=== PATIENT | female | born 1950 | race Caucasian/White ===

== ENCOUNTER 2022-02-19 14:01 | Outpatient (CLI) | payer MEDICARE, SELFPAY ==
--- NOTE | 2022-02-19 14:13 | MM_ITS ---
WS: [id number] BILATERAL 3D TOMOSYNTHESIS DIGITAL SCREENING MAMMOGRAPHY WITH CAD CLINICAL INFORMATION: SCREENING HISTORY: Screening mammogram. LEFT lump near axilla. RIGHT breast discharge. COMPARISON: August 02, 2020 TECHNIQUE: Bilateral CC and MLO views. FINDINGS: History of bilateral breast reduction. Scattered fibroglandular densities bilaterally. Punctate and vascular calcifications. Architectural d istortion upper outer LEFT breast unchanged since 2019. No suspicious focal mass, asymmetry, calcific ations, or architectural distortion. No evidence of malignancy. MM/[place] [id number] IMPRESSION: BI-RADS: 2-Benign FOLLOW UP: 1 Year Follow-up Recommend return to annual screening mammography.
== END 2022-02-19 14:02 | disposition home or self-care (01) ==
LOC: RAD 14:04
PROVIDERS: Visit Provider Physician Assistant
DX: Z12.31 Encounter for screening mammogram for malignant neoplasm of breast (principal)
CPT/HCPCS: 77063; 77067

== ENCOUNTER 2022-03-10 11:46 | Inpatient (IN) | payer MEDICARE, SELFPAY ==
[2022-03-10] VITALS (7 sets, daily range): BP systolic 100–155; BP diastolic 67–71; PULSE 56–79; RESP 16–18; TEMP 36.8–38.4; O2SAT 88–98; BMI 25.3
--- NOTE | 2022-03-10 14:22 | ED_ITS ---
HPI - General Adult General: Chief complaint: COVID symptoms Stated complaint: abd pain, covid + Time Seen by Provider: 03/10/22 14:14 History of Present Illness: Patient is a 71-year-old female with history hypothyroidism presenting to the emergency room with complaints of acute cough, runny nose, sore throat, loss of taste, vomiting, decreased p.o. intake, and diarrhea for the last 4 days. Per patient, for the last 30 days, she has had right lower quadrant abdominal pain that is intermittent cramping. Says it, patient has been doing well up until 4 days ago when she suddenly began having URI-like symptoms. Patient had underwent testing at urgent care today was found to have COVID. Patient tells me that she has not been able to hold anything down for the last 4 days. Patient tells me that earlier today, she has had multiple episodes of emesis with the last episode looking kind of brownish and coffee colored. Patient noted mild streaks of blood in her vomit. Patient denies any abdominal pain, excessive use of NSAIDs, anticoagulation use, melena hematochezia. Patient has no prior history of varices or prior status of peptic ulcer. Patient denies any excessive alcohol use. Onset: 4 days of cough, runny nose, sore throat, loss of taste, dehydration, and vomiting in the setting of 30 days of RLQ abd pain Duration:ongoing Location:home Severity:moderate Associated symptoms: Reports malaise, nausea and vomiting; Deny chest pain, dyspnea, rash or palpitations Review of Systems Const: Reports: fever(s), chills, body aches, change in appetite, fatigue, malaise and other (+generalized weakness) Eyes: Denies: change in vision ENMT: Denies: mouth pain Card: Denies: chest pain or palpitations Resp: Denies: dyspnea or non-productive cough GI: Reports: nausea, vomiting, diarrhea and other (+coffee ground emesis after multiple clear emesis, +decreased po intake); Denies: abdominal pain : Denies: dysuria Musc: Denies: extremity pain Skin/Breast: Denies: rash or new lesions Neuro: Denies: weakness in extremities Psych: Reports: other (Normal mood) Zeeshan/Lymph: Denies: easy bruising PFS ED PFSH: Medical History (Updated 03/11/22 @ 16:23 by Gumaro Hinojosa MD) Hypothyroidism Surgical History (Updated 03/10/22 @ 17:54 by Gumaro Hinojosa MD) H/O: hysterectomy Hx of appendectomy Hx of cholecystectomy Family History (Updated 03/10/22 @ 17:55 by Gumaro Hinojosa MD) Mother Lung cancer Social History Smoking and tobacco status: never smoked Alcohol intake: never Substance/Drug Use: never Physical Exam Const: COMMON NORMALS: alert HENMT: COMMON NORMALS: atraumatic HEAD & SCALP: atraumatic MOUTH: moist mucous membranes abnormal Eye: COMMON NORMALS: EOMs intact bilaterally and conjunctivae normal CONJUNCTIVA: Yes conjunctivae normal Neck/C-Spine: COMMON NORMALS: full ROM and supple Resp: COMMON NORMALS: normal respiratory effort and clear to auscultation bilaterally AUSCULTATION: clear to auscultation bilaterally Cardio: COMMON NORMALS: regular rate RATE: regular rate GI: COMMON NORMALS: Soft to palpation PALPATION: Yes Soft to palpation OTHER: +mild RLQ focal TTP. NO guarding rebound, guarding, rigidity. No CVA tenderness to percussion. Neg Fournier/Neg McBurney's point tenderness, no suprabupic tenderness to palpation. Extremity: COMMON NORMALS: full ROM Neuro: SENSORIUM/ORIENTATION: Yes alert MOTOR EXAM: No Abnormal motor strength present and Other motor observations present (no focal motor deficits) Psych: COMMON NORMALS: speech normal SPEECH: Yes normal speech MOOD & AFFECT: Yes euthymic mood Course Vital Signs: Vital signs: Vital Signs Temperature 98.3 F 03/13/22 20:00 Pulse Rate 60 03/13/22 20:00 Respiratory Rate 14 03/13/22 20:00 Blood Pressure 143/77 03/13/22 20:00 Pulse Oximetry 98 03/13/22 20:00 Oxygen Delivery Me thod 03/13/22 20:00 Oxygen Flow Rate 1 03/13/22 20:00 MDM - General Adult Medical Decision Making 71-year-old female with history of hypothyroidism presenting to the emergency room with generalized weakness, body ache, fever/chills, decreased p.o. intake, nausea vomiting diarrhea for the last 4 days in the setting of right lower quadrant abd pain x30 days. On physical exam, patient has mild tenderness of his right lower quadrant. Patient is febrile to 101.4 degrees. Patient appears to be dry with no guarding or rebound tenderness. COVID antigen is positive. X-ray chest is consistent with mild COVID. Patient has increased oxygen requirement satting 85 to 90% on room air. Dimer pending. Patient received Decadron 6mg and remdesivir. Patient will with oxygen for COVID pneumonia. CT showed superimposed atypical bacterial pneumonia. CT showed enteritis mild in the abdomen. Patient received ceftriaxone and azithromycin. Disposition: admission Lab Data : 03/13/22 06:58 03/13/22 06:58 Radiology Impressions Abdomen/Pelvis CT 03/10/22 14:33 IMPRESSION: 1. Reticulonodular interstitial thickening in the right middle lobe and right lower lobe. The patient is reportedly COVID-19 positive, these findings are not commonly seen in COVID-19 pneumonia however. Recommend clinical correlation for possible superimposed atypical bacterial pneumonia. Recommend followup chest imaging to insure resolution of these findings. 2. Fluid within the small bowel and colon without evidence of bowel wall thickening. This may reflect viral gastroenteritis in the appropriate clinical situation. 3. Scattered diverticula in the sigmoid colon. No evidence for diverticulitis. 4. Moderate hiatal hernia. 5. Small fat-containing umbilical hernia. No evidence for strangulation. 6. Incidental/nonacute findings are listed in the report. COMMENTS: Consistent with the [employer]'s Incidental Findings Committee white paper (J Am Renee Radiol 2018): Any incidental renal lesion less than 1 cm or classified as too small to characterize, or any incidental cystic renal lesion characterized as simple-appearing, is likely benign. No follow-up imaging is recommended for these lesions per consensus recommendations based on imaging criteria. ADDENDUM: 03/10/221822 Urgent results were discussed with PORSHA Alberto on 03/10/2022 at 6:21 PM CDT. Chest X-Ray 03/10/22 16:39 IMPRESSION: 1. Reticulonodular interstitial thickening in the right lung, suspicious for atypical bacterial pneumonia (patient is reportedly COVID-19 positive, these findings are atypical for COVID-19 pneumonia). Recommend followup chest imaging to insure resolution of these findings. 2. Incidental/nonacute findings are listed in the report. ADDENDUM: 07/25/22 1823 Urgent results were discussed with PORSHA Alberto on 03/10/2022 at 6:22 PM CDT. Chest CTA 03/11/22 12:04 IMPRESSION: 1. Reticulonodular interstitial thickening in both lungs, worse on the right. These findings are not commonly seen in COVID-19 pneumonia. Findings are suspicious for a superimposed atypical bacterial pneumonia. Recommend followup chest imaging to insure resolution of these findings. 2. No evidence for pulmonary embolism. 3. Moderate hiatal hernia. 4. Incidental/nonacute findings are listed in the report. Laboratory Results WBC 2.6 10^3/uL (4.0-10.0) L 03/10/22 14:56 RBC 4.26 10^6/uL (4.1-5.3) 03/10/22 14:56 Hgb 13.6 g/dL (11.5-15.3) 03/10/22 14:56 Hct 41.1 % (37.0-47.0) 03/10/22 14:56 MCV 96.5 fl (81-99) 03/10/22 14:56 MCH 31.9 pg (28.0-34.0) 03/10/22 14:56 MCHC 33.1 g/dL (30.0-36.0) 03/10/22 14:56 RDW 12.2 % (12.1-15.1) 03/10/22 14:56 Plt Count 237 10^3/cmm (130-400) 03/10/22 14:56 MPV 10.2 fL (7.4-10.4) 03/10/22 14:56 Neut % (Auto) 45.3 % 03/10/22 14:56 Lymph % (Auto) 36.2 % 03/10/22 14:56 [place] % (Auto) 18.1 % 03/10/22 14:56 Eos % (Auto) 0.0 % 03/10/22 14:56 Baso % (Auto) 0.4 % 03/10/22 14:56 Neut # (Auto) 1.18 10^3/uL (1.8-7.7) L 03/10/22 14:56 Lymph # (Auto) 0.9 10^3/uL (0.8-4.8) 03/10/22 14:56 [place] # (Auto) 0.5 10^3/uL (0.2-0.9) 03/10/22 14:56 Eos # (Auto) 0.0 10^3/uL (0.0-0.8) 03/10/22 14:56 Baso # (Auto) 0.0 10^3/uL (0.0-0.1) 03/10/22 14:56 Nucleated RBC % (auto) 0 % 03/10/22 14:56 Nucleated RBCs # 0.0 /100WBC 03/10/22 14:56 Sodium 136 mmol/L (136-145) 03/10/22 14:56 Potassium 3.6 mmol/L (3.5-5.1) 03/10/22 14:56 Chloride 98 mmol/L (98-107) 03/10/22 14:56 Carbon Dioxide 27 mmol/L (22-29) 03/10/22 14:56 Anion Gap 14.6 (5-19) 03/10/22 14:56 BUN 10 mg/dL (8-23) 03/10/22 14:56 Creatinine 0.8 mg/dL (0.5-0.9) 03/10/22 14:56 GFR Calculation 70.9 mL/min (90-130) L 03/10/22 14:56 Glucose 82 mg/dL (65-115) 03/10/22 14:56 Calculated Osmolality 280 mOsm/kg (285-295) L 03/10/22 14:56 Calcium 9.0 mg/dL (8.5-10.5) 03/10/22 14:56 Total Bilirubin 0.3 mg/dL (0.15-1.2) 03/10/22 14:56 AST 24 U/L (0-32) 03/10/22 14:56 ALT 13 U/L (0-33) 03/10/22 14:56 Alkaline Phosphatase 73 IU/L (35-105) 03/10/22 14:56 Total Protein 7.2 g/dL (6.6-8.7) 03/10/22 14:56 Albumin 4.4 g/dL (3.5-5.2) 03/10/22 14:56 Globulin 2.8 g/dL (1.3-4.6) 03/10/22 14:56 Lipase 46 U/L (13-60) 03/10/22 14:56 Urine Color Dark yellow (Yellow) 03/10/22 14:56 Urine Appearance Clear (CLEAR) 03/10/22 14:56 Urine pH 6 (5-7) 03/10/22 14:56 Ur Specific [place] 1.020 (1.005-1.030) 03/10/22 14:56 Urine Protein Trace (Negative) 03/10/22 14:56 Urine Glucose (UA) Norm (Normal) 03/10/22 14:56 Urine Ketones 1+ (Negative) H 03/10/22 14:56 Urine Blood 2+ (Negative) H 03/10/22 14:56 Urine Nitrate Negative (Negative) 03/10/22 14:56 Urine Bilirubin Neg (Negative) 03/10/22 14:56 Urine Urobilinogen Norm mg/dL (Negative) 03/10/22 14:56 Ur Leukocyte Esterase Negative (Negative) 03/10/22 14:56 Urine RBC 5-10 /hpf (0-2) H 03/10/22 14:56 Urine WBC 0-4 /hpf (0-5) H 03/10/22 14:56 Ur Squamous Epith Cells 5-10 /hpf (0-5) H 03/10/22 14:56 Amorphous Sediment Not Reportable 03/10/22 14:56 Urine Bacteria 1+ /hpf (NONE) H 03/10/22 14:56 Urine Mucus 1+ /hpf 03/10/22 14:56 SARS-CoV-2 Ag (Rapid) Positive (Negative) H 03/10/22 14:56 Imaging Data Other Imaging: Radiologist's impression: [address] [address] XRay Report Signed Patient: Mena Cage Unit #: [id number] : 1950 Age/Sex: 71 / F ADM Date: 03/10/22 Loc: ER Room/Bed: Attending Dr: Ordering Provider/Ordering MD: Porsha Camilo MD Date of Service: 03/10/22 Procedure(s): XR chest 1V portable [id number] Accession Number(s): [id number] Report Number: [id number] PROCEDURE INFORMATION: Exam: XR Chest Exam date and time: 03/10/2022 5:06 PM Age: 71 years old Clinical indication: Dyspnea TECHNIQUE: Imaging protocol: Radiologic exam of the chest. Views: 1 view. COMPARISON: No relevant prior studies available. FINDINGS: Lungs: Reticulonodular interstitial thickening in the right lung, suspicious for atypical bacterial pneumonia (patient is reportedly COVID-19 positive, these findings are atypical for COVID-19 pneumonia). Pleural spaces: No pleural effusion. No pneumothorax. Heart/Mediastinum: The cardiac silhouette is mildly enlarged. Mediastinal contours are unremarkable. Vasculature: Vascular calcifications in the aorta. Bones/joints: Unremarkable for age. Organs: Surgical clips in the right upper quadrant, consistent with a previous cholecystectomy. XR/XR chest 1V portable [id number] IMPRESSION: 1. Reticulonodular interstitial thickening in the right lung, suspicious for atypical bacterial pneumonia (patient is reportedly COVID-19 positive, these findings are atypical for COVID-19 pneumonia). Recommend followup chest imaging to insure resolution of these findings. 2. Incidental/nonacute findings are listed in the report. ? Dictated By: Carmen Hughes MD Signed By: Carmen Hughes MD Signed Date/Time: 03/10/221818 DD/ [address] [place] [address] CT Scan Report Signed with Jhoan Patient: Mena Cage Unit #: [id number] : 1950 Age/Sex: 71 / F ADM Date: 03/10/22 Loc: ER Room/Bed: Attending Dr: Ordering Provider/Ordering MD: Porsha Camilo MD Date of Service: 03/10/22 Procedure(s): CT abdomen pelvis w con* [id number] Accession Number(s): [id number] Report Number: [id number]/CT abdomen pelvis w con* [id number] Urgent results were discussed with PORSHA Alberto on 03/10/2022 at 6:21 PM CDT. ? Addendum Dictated By: ?Carmen Hughes MD Addendum Signed By: ?Carmen Hughes MD Signed Date/Time: 03/10/221822 Addendum Cosigned By: ? PROCEDURE INFORMATION: Exam: CT Abdomen And Pelvis With Contrast Exam date and time: 03/10/2022 5:21 PM Age: 71 years old Clinical indication: Other: Rlq pain; Patient HX: Covid positive, numerous abdomen surgeries; Additional info: Abd pain rlq x 1 month TECHNIQUE: Imaging protocol: Computed tomography of the abdomen and pelvis with contrast. Radiation optimization: All CT scans at this facility use at least one of these dose optimization techniques: automated exposure control; mA and/or kV adjustment per patient size (includes targeted exams where dose is matched to clinical indication); or iterative reconstruction. Contrast material: OMNIPAQUE 350; Contrast volume: 95 ml; Contrast route: INTRAVENOUS (IV);? COMPARISON: CR XR chest 1V portable [id number] 03/10/2022 5:06 PM RADIATION DOSE METRICS: Total DLP (mGy-cm): 1021.18 FINDINGS: Lungs: Reticulonodular interstitial thickening in the right middle lobe and right lower lobe. The patient is reportedly COVID-19 positive, these findings are not commonly seen in COVID-19 pneumonia however. Pleural spaces: No pleural effusion. Heart: Visualized portions of the heart are mildly enlarged. Liver: The liver is unremarkable. Gallbladder and bile ducts: Patient has had a previous cholecystectomy. Dilatation of the biliary ducts, not unexpected in a patient who has had a prior cholecystectomy. Pancreas: The pancreas is unremarkable. No pancreatic ductal dilatation. Spleen: The spleen is unremarkable. Adrenal glands: The right and left adrenal glands are unremarkable. Kidneys and ureters: Subcentimeter hypodense foci in both right and left kidneys that are too small to characterize, however likely represent small cysts. The right and left ureters are unremarkable. Stomach and bowel: Scattered diverticula in the sigmoid colon. No evidence for diverticulitis. Fluid within the small bowel and colon without evidence of bowel wall thickening. Moderate hiatal hernia. Appendix: Appendix not definitely visualized. No inflammatory changes in the pericecal region however. Intraperitoneal space: No free intraperitoneal air. No ascites. No loculated fluid collections to suggest an abscess. Vasculature: Mild atherosclerotic changes in the visualized arteries. No evidence for aortic aneurysm or aortic dissection. Hepatic veins, portal veins, splenic vein, and SMV are patent. Lymph nodes: No lymphadenopathy. Urinary bladder: The bladder is incompletely filled, which can limit evaluation. No focal abnormality in the bladder however. Reproductive: Patient has had a previous hysterectomy. Calcifications in both right and left ovaries, possibly due to sequela from prior involuting cysts. Bones/joints: Degenerative changes in the spine, sacroiliac joints, and hips. Soft tissues: No acute abnormality in the extra-abdominal soft tissues. Small fat-containing umbilical hernia. No evidence for strangulation. CT/CT abdomen pelvis w con* [id number] IMPRESSION: 1. Reticulonodular interstitial thickening in the right middle lobe and right lower lobe. The patient is reportedly COVID-19 positive, these findings are not commonly seen in COVID-19 pneumonia however. Recommend clinical correlation for possible superimposed atypical bacterial pneumonia. Recommend followup chest imaging to insure resolution of these findings. 2. Fluid within the small bowel and colon without evidence of bowel wall thickening. This may reflect viral gastroenteritis in the appropriate clinical situation. 3. Scattered diverticula in the sigmoid colon. No evidence for diverticulitis. 4. Moderate hiatal hernia. 5. Small fat-containing umbilical hernia. No evidence for strangulation. 6. Incidental/nonacute findings are listed in the report. ? COMMENTS: Consistent with the [employer]'s Incidental Findings Committee white paper (J Am Renee Radiol 2018): Any incidental renal lesion less than 1 cm or classified as too small to characterize, or any incidental cystic renal lesion characterized as simple-appearing, is likely benign. No follow-up imaging is recommended for these lesions per consensus recommendations based on imaging criteria. ? Dictated By: Carmen Hughes MD Signed By: Carmen Hughes MD Signed Date/Time: 03/10/221816 DD/ 1721 Discharge Plan Discharge Patient Disposition: Admitted As Inpatient Admit Provider: Gumaro Hinojosa Clinical Impression: Dehydration, Abdominal pain, COVID, Diarrhea, Hypoxemia, Pneumonia due to 2019- nCoV, Bacterial pneumonia Condition: Stable Discharge Diet: Advance as tolerated Discharge Activity: Increase activity as tolerated Coding Level of Care Code ED Assistant General Manager for Chg Fwd Exam Comprehensive
--- NOTE | 2022-03-10 14:33 | CTR_ITS ---
PROCEDURE INFORMATION: Exam: CT Abdomen And Pelvis With Contrast Exam date and time: 03/10/2022 5:21 PM Age: 71 years old Clinical indication: Other: Rlq pain; Patient HX: Covid positive, numerous abdomen surgeries; Additional info: Abd pain rlq x 1 month TECHNIQUE: Imaging protocol: Computed tomography of the abdomen and pelvis with contrast. Radiation optimization: All CT scans at this facility use at least one of these dose optimization techniques: automated exposure control; mA and/or kV adjustment per patient size (includes targeted exams where dose is matched to clinical indication); or iterative reconstruction. Contrast material: OMNIPAQUE 350; Contrast volume: 95 ml; Contrast route: INTRAVENOUS (IV); COMPARISON: CR XR chest 1V portable [id number] 03/10/2022 5:06 PM RADIATION DOSE METRICS: Total DLP (mGy-cm): 1021.18 FINDINGS: Lungs: Reticulonodular interstitial thickening in the right middle lobe and right lower lobe. The patient is reportedly COVID-19 positive, these findings are not commonly seen in COVID-19 pneumonia however. Pleural spaces: No pleural effusion. Heart: Visualized portions of the heart are mildly enlarged. Liver: The liver is unremarkable. Gallbladder and bile ducts: Patient has had a previous cholecystectomy. Dilatation of the biliary ducts, not unexpected in a patient who has had a prior cholecystectomy. Pancreas: The pancreas is unremarkable. No pancreatic ductal dilatation. Spleen: The spleen is unremarkable. Adrenal glands: The right and left adrenal glands are unremarkable. Kidneys and ureters: Subcentimeter hypodense foci in both right and left kidneys that are too small to characterize, however likely represent small cysts. The right and left ureters are unremarkable. Stomach and bowel: Scattered diverticula in the sigmoid colon. No evidence for diverticulitis. Fluid within the small bowel and colon without evidence of bowel wall thickening. Moderate hiatal hernia. Appendix: Appendix not definitely visualized. No inflammatory changes in the pericecal region however. Intraperitoneal space: No free intraperitoneal air. No ascites. No loculated fluid collections to suggest an abscess. Vasculature: Mild atherosclerotic changes in the visualized arteries. No evidence for aortic aneurysm or aortic dissection. Hepatic veins, portal veins, splenic vein, and SMV are patent. Lymph nodes: No lymphadenopathy. Urinary bladder: The bladder is incompletely filled, which can limit evaluation. No focal abnormality in the bladder however. Reproductive: Patient has had a previous hysterectomy. Calcifications in both right and left ovaries, possibly due to sequela from prior involuting cysts. Bones/joints: Degenerative changes in the spine, sacroiliac joints, and hips. Soft tissues: No acute abnormality in the extra-abdominal soft tissues. Small fat-containing umbilical hernia. No evidence for strangulation. CT/CT abdomen pelvis w con* [id number] IMPRESSION: 1. Reticulonodular interstitial thickening in the right middle lobe and right lower lobe. The patient is reportedly COVID-19 positive, these findings are not commonly seen in COVID-19 pneumonia however. Recommend clinical correlation for possible superimposed atypical bacterial pneumonia. Recommend followup chest imaging to insure resolution of these findings. 2. Fluid within the small bowel and colon without evidence of bowel wall thickening. This may reflect viral gastroenteritis in the appropriate clinical situation. 3. Scattered diverticula in the sigmoid colon. No evidence for diverticulitis. 4. Moderate hiatal hernia. 5. Small fat-containing umbilical hernia. No evidence for strangulation. 6. Incidental/nonacute findings are listed in the report. COMMENTS: Consistent with the [employer]'s Incidental Findings Committee white paper (J Am Renee Radiol 2018): Any incidental renal lesion less than 1 cm or classified as too small to characterize, or any incidental cystic renal lesion characterized as simple-appearing, is likely benign. No follow-up imaging is recommended for these lesions per consensus recommendations based on imaging criteria.
[2022-03-10] MEDS: acetaminophen 500 mg Tablet 1000 MG PO (14:47)
[2022-03-10] MEDS: lidocaine 2% viscous 15 ML, aluminum-mag hydrox-simethicon 30 ML, sucralfate oral liq 1 GM PO (14:47)
[2022-03-10] MEDS: sodium chloride 0.9% 1,000 ML 999 ML IV (14:47)
[2022-03-10 15:26] LABS: Basophils % 0.4 %; Hematocrit 41.1 % (37.0-47.0); Hemoglobin 13.6 g/dL (11.5-15.3); Lymphocytes # 0.9 10^3/uL (0.8-4.8); Lymphocytes % 36.2 %; Mean Corpuscular HGB Conc 33.1 g/dL (30.0-36.0); Mean Corpuscular Hemoglobin 31.9 pg (28.0-34.0); Mean Corpuscular Volume 96.5 fl (81-99); Mean Platelet Volume 10.2 fL (7.4-10.4); Monocytes # 0.5 10^3/uL (0.2-0.9); Monocytes % 18.1 %; Neutrophils # 1.18 10^3/uL (1.8-7.7); Neutrophils % 45.3 %; Nucleated Red Blood Cells % 0 %; Platelet Count 237 10^3/cmm (130-400); Red Blood Count 4.26 10^6/uL (4.1-5.3); Red Cell Distribution Width 12.2 % (12.1-15.1); White Blood Count 2.6 10^3/uL (4.0-10.0)
[2022-03-10 15:38] LABS: Alanine Aminotransferase 13 U/L (0-33); Albumin Level 4.4 g/dL (3.5-5.2); Alkaline Phosphatase 73 IU/L (35-105); Anion Gap 14.6 (5-19); Aspartate Amino Transferase 24 U/L (0-32); Blood Urea Nitrogen 10 mg/dL (8-23); Carbon Dioxide 27 mmol/L (22-29); Chloride 98 mmol/L (98-107); Creatinine Clr Calc Pharmacy 66.1789; Globulin 2.8 g/dL (1.3-4.6); Glomerular Filtration Rate 70.9 mL/min (90-130); Glucose 82 mg/dL (65-115); Lipase 46 U/L (13-60); Osmolality Calculated 280 mOsm/kg (285-295); Potassium 3.6 mmol/L (3.5-5.1); Sodium 136 mmol/L (136-145); Total Bilirubin 0.3 mg/dL (0.15-1.2); Total Protein 7.2 g/dL (6.6-8.7)
[2022-03-10 15:41] LABS: Urine Appearance Clear (CLEAR); Urine Color Dark Yellow (Yellow); pH Urine 6 (5-7)
[2022-03-10 15:42] LABS: Add Urine Microscopic? YES; Bilirubin Urine Neg (Negative); Blood Urine 2+ (Negative); Glucose Urine UA Norm (Normal); Ketones Urine 1+ (Negative); Leukocyte Esterase Urine Negative (Negative); Nitrate Urine Negative (Negative); Protein Urine Trace (Negative); Urobilinogen Urine Norm (Negative)
[2022-03-10 15:43] LABS: Add Urine Culture? No; Bacteria Urine 1+ /hpf; Mucus Urine 1+ /hpf; WBC Urine 0-4 /hpf (0-5)
[2022-03-10 15:53] LABS: SARS Covid-2 Antigen Positive (Negative)
[2022-03-10] MEDS: dexamethasone 10 mg/mL INJ 6 MG IVP (16:10)
--- NOTE | 2022-03-10 16:39 | XRR_ITS ---
PROCEDURE INFORMATION: Exam: XR Chest Exam date and time: 03/10/2022 5:06 PM Age: 71 years old Clinical indication: Dyspnea TECHNIQUE: Imaging protocol: Radiologic exam of the chest. Views: 1 view. COMPARISON: No relevant prior studies available. FINDINGS: Lungs: Reticulonodular interstitial thickening in the right lung, suspicious for atypical bacterial pneumonia (patient is reportedly COVID-19 positive, these findings are atypical for COVID-19 pneumonia). Pleural spaces: No pleural effusion. No pneumothorax. Heart/Mediastinum: The cardiac silhouette is mildly enlarged. Mediastinal contours are unremarkable. Vasculature: Vascular calcifications in the aorta. Bones/joints: Unremarkable for age. Organs: Surgical clips in the right upper quadrant, consistent with a previous cholecystectomy. XR/XR chest 1V portable [id number] IMPRESSION: 1. Reticulonodular interstitial thickening in the right lung, suspicious for atypical bacterial pneumonia (patient is reportedly COVID-19 positive, these findings are atypical for COVID-19 pneumonia). Recommend followup chest imaging to insure resolution of these findings. 2. Incidental/nonacute findings are listed in the report.
--- NOTE | 2022-03-10 17:29 | ECG_ITS ---
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 Measurements Intervals [place] Rate: 63 P: 62 [place]: 204 QRS: 17 QRSD: 86 T: 46 QT: 418 QTc: 429 Interpretive Statements SINUS RHYTHM POSSIBLE LEFT ATRIAL ENLARGEMENT [-0.1mV P WAVE IN V1/V2] LOW QRS VOLTAGE IN PRECORDIAL LEADS [QRS DEFLECTION < 1.0 mV IN CHEST LEADS] POSSIBLE RIGHT VENTRICULAR CONDUCTION DELAY [RSR (QR) IN V1/V2] No previous ECG available for comparison Electronically Signed On 03-10-2022 21:00:13 CDT by Adalberto Juarez M.D. [email or web address]
[2022-03-10] MEDS: iohexol 350 mg/mL 100 mL Btl IV (17:32)
--- NOTE | 2022-03-10 17:51 | PM.HP ---
Providers/Chief Complaint Chief Complaint: abd pain, covid + History of Present Illness Mena Cage is a 71 year old female with a past medical history of hypothyroidism, who presents to [facility] due to nausea, vomiting, fatigue, malaise, fever, shortness of breath since . No history of COVID-19 vaccination. No history of COPD. No history of smoking. No history of strokes. No history of DVT or PEs. Her symptoms progressed to nausea, vomiting, difficulty keeping down solids, with diarrhea. She tested positive for COVID-19 at [facility] and there was concerns for dehydration so she was sent to the emergency room for evaluation. Review of Systems Const: Reports: fever(s), chills, body aches, change in appetite, fatigue and malaise Card: Denies: chest pain Resp: Reports: dyspnea and non-productive cough GI: Reports: abdominal pain, nausea, vomiting and diarrhea Medications/Allergies Home Medications Medication Instructions Recorded Confirmed Last Taken Type acetaminophen 500 mg tablet 500 mg PO Q6H PRN 5 Days #20 tab 03/10/22 Unknown Rx Allergies Allergy/AdvReac Type Severity Reaction Status Date / Time ciprofloxacin Allergy ALGY-Anaphy Verified 03/10/22 14:46 laxis PFSH Acute PFSH: Medical History (Updated 03/10/22 @ 17:55 by Gumaro Hinojosa MD) Hypothyroidism Surgical History (Updated 03/10/22 @ 17:54 by Gumaro Hinojosa MD) H/O: hysterectomy Hx of appendectomy Hx of cholecystectomy Family History (Updated 03/10/22 @ 17:55 by Gumaro Hinojosa MD) Mother Lung cancer Social History Smoking and tobacco status: never smoked Alcohol intake: never Substance/Drug Use: never Vitals/I&O/Wt Last Vital Signs Temp 98.6 F 03/10/22 16:00 Pulse 67 03/10/22 16:00 Resp 18 03/10/22 16:00 BP 155/67 03/10/22 16:00 Pulse Ox 93 03/10/22 16:00 03/10/22 03/10/22 03/10/22 06:59 14:59 22:59 Intake Total 1000 / 1000 Balance 1000 / 1000 Weight last 48 hrs Weight 71.214 kg Physical Exam Const: COMMON NORMALS: no acute distress and patient oriented x3 HENMT: COMMON NORMALS: normocephalic HEAD & SCALP: normocephalic Neck/C-Spine: COMMON NORMALS: no JVD Resp: COMMON NORMALS: normal respiratory effort, No retractions, No use of accessory muscles and clear to auscultation bilaterally AUSCULTATION: clear to auscultation bilaterally Cardio: COMMON NORMALS: no JVD, regular rate, regular rhythm, S1 normal heart sound present and S2 normal heart sound present RATE: regular rate RHYTHM: regular rhythm HEART SOUNDS: S1 normal heart sound present and S2 normal heart sound present GI: COMMON NORMALS: Normal to inspection, nondistended, normoactive bowel sounds present, Soft to palpation, non-tender, No hepatosplenomegaly present, no masses and no bruits PALPATION: Yes Soft to palpation and Yes No hepatosplenomegaly present Extremity: COMMON NORMALS: capillary refill normal, no clubbing, cyanosis or edema, no calf tenderness and no pedal edema Neuro: COMMON NORMALS: patient oriented x3, CN's II-XII intact bilaterally, moves all extremities and no focal motor deficits Psych: COMMON NORMALS: mental status grossly normal Data : 03/10/22 14:56 03/10/22 14:56 A&P Assessment and plan (1) Pneumonia due to COVID-19 virus: Status: Acute (2) Lymphopenia: Status: Acute Plan COVID-19 pneumonia -Hypoxia requiring 2 L -Chest x-ray no focal pneumonia -With evidence of dehydration -IV fluids -Decadron -Remdesivir -Doxycycline -Vitamin C, zinc, vitamin D -incentive spirometer, flutter valve -Troponin series, D-dimer - Lovenox for DVT prophylaxis -Full code -CT scan abdomen pelvis ordered Attestations Medical Necessity Statement*: Patient requires hospitalization, inpatient, greater than 2 midnights, secondary to COVID-19 Coding Level of Care Code 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
[2022-03-10] MEDS: remdesivir 200 MG in sodium chloride 0.9% (100 ml) 60 ML 100 MG IV (18:06)
[2022-03-10] MEDS: doxycycline 100 mg Tablet PO (18:11)
[2022-03-10] MEDS: pantoprazole 40 mg SDV IVP (18:11)
[2022-03-10] MEDS: ascorbic acid 500 mg Tablet PO (18:11)
[2022-03-10] MEDS: enoxaparin 40 mg/0.4 mL Syringe SUBCUT (18:12)
--- NOTE | 2022-03-10 19:29 | ECG_ITS ---
[facility] Test Date: 2022-03-10 Pat Name: Mena Cage Department: Room: 266 Gender: Female Smoke Jumper: : 1950 Requested By: Gumaro Hinojosa Order Number: [id number] Armando MD: Adalberto Juarez M.D. Measurements Intervals [place] Rate: 54 P: 55 AL: 191 QRS: 22 QRSD: 86 T: 46 QT: 455 QTc: 431 Interpretive Statements SINUS BRADYCARDIA LOW QRS VOLTAGE IN PRECORDIAL LEADS [QRS DEFLECTION < 1.0 mV IN CHEST LEADS] Compared to ECG 03/10/2022 17:43:59 Sinus rhythm no longer present Electronically Signed On 03-10-2022 21:07:53 CDT by Adalberto Juarez M.D. [id number]
[2022-03-10 19:41] LABS: INR 1.11 (0.8-1.2)
--- NOTE | 2022-03-10 19:41 | PC.NURSE ---
Patient states she takes 150 mg of Trazodone at night at home. Dr. Hoover notified that patient is asking for it tonight.
[2022-03-10 19:46] LABS: Lactic Sepsis W/Reflex 0.5 mmol/L (0.5-2.2)
[2022-03-10] MEDS: ondansetron 2 mg/ML SDV 2 mL 4 MG IVP (19:59)
[2022-03-10] MEDS: cefTRIAXone 1,000 MG in sodium chloride 0.9% (plus) 50 ML 100 MG IV (19:59)
[2022-03-10] MEDS: sodium chloride 0.9% 1,000 ML 100 ML IV (20:00)
[2022-03-10] MEDS: azithromycin 500 MG in sodium chloride 0.9% 250 ML 250 MG IV (20:00)
[2022-03-10 20:05] LABS: Troponin(5th) Baseline 6 ng/L (0-10)
[2022-03-10] MEDS: benzonatate 100 mg Capsule PO (20:10)
[2022-03-10] MEDS: trazodone 150 mg Tablet PO (20:10)
[2022-03-10 20:12] LABS: Thyroid Stimulating Hormone 0.03 uIU/mL (0.27-4.20)
[2022-03-10 20:14] LABS: NT Pro B Type Natriuretic Pept 116 pg/mL (0-125); Procalcitonin 0.06 ng/mL (0-0.5)
[2022-03-10] MEDS: sennosides-docusate Tablet 1 TAB PO (20:26)
[2022-03-10 20:27] LABS: C Reactive Protein 19.3 mg/L (0.0-4.9)
[2022-03-10 23:25] LABS: Troponin 5 2HR Delta 0 ABS# (0-10)
--- NOTE | 2022-03-10 23:29 | ECG_ITS ---
[facility] Test Date: 2022-03-10 Pat Name: Mena Cage Department: Room: 266 Gender: Female Academic Affairs Assistant: : 1950 Requested By: Gumaro Hinojosa Order Number: [id number] Roberts MD: Manuela Contreras M.D. Measurements Intervals [place] Rate: 56 P: 52 MN: 190 QRS: 14 QRSD: 96 T: 40 QT: 452 QTc: 438 Interpretive Statements SINUS BRADYCARDIA LOW QRS VOLTAGE IN PRECORDIAL LEADS [QRS DEFLECTION < 1.0 mV IN CHEST LEADS] Compared to ECG 03/10/2022 20:38:45 No significant changes Electronically Signed On 03-11-2022 12:10:22 CDT by Manuela Contreras M.D. [id number]
[2022-03-11] VITALS (7 sets, daily range): BP systolic 111–152; BP diastolic 71–87; PULSE 50–66; RESP 16–18; TEMP 36.4–36.9; O2SAT 92–99
[2022-03-11] MEDS: benzonatate 100 mg Capsule PO (04:03)
[2022-03-11] MEDS: sodium chloride 0.9% 1,000 ML 100 ML IV ×2 (04:03→19:13)
[2022-03-11 06:01] LABS: Hemoglobin 11.7 g/dL (11.5-15.3); Lymphocytes # 0.7 10^3/uL (0.8-4.8); Lymphocytes % 44.7 %; Mean Corpuscular HGB Conc 32.5 g/dL (30.0-36.0); Mean Corpuscular Hemoglobin 31.9 pg (28.0-34.0); Mean Corpuscular Volume 98.1 fl (81-99); Mean Platelet Volume 10.4 fL (7.4-10.4); Monocytes # 0.1 10^3/uL (0.2-0.9); Monocytes % 4.6 %; Neutrophils % 50.7 %; Nucleated Red Blood Cells % 0 %; Platelet Count 181 10^3/cmm (130-400); Red Blood Count 3.67 10^6/uL (4.1-5.3); Red Cell Distribution Width 12.1 % (12.1-15.1); White Blood Count 1.5 10^3/uL (4.0-10.0)
[2022-03-11 06:10] LABS: Neutrophils # 0.77 10^3/uL (1.8-7.7)
[2022-03-11 06:24] LABS: Alanine Aminotransferase 12 U/L (0-33); Albumin Level 3.4 g/dL (3.5-5.2); Alkaline Phosphatase 57 IU/L (35-105); Anion Gap 13.5 (5-19); Aspartate Amino Transferase 20 U/L (0-32); Blood Urea Nitrogen 10 mg/dL (8-23); Calcium 8.1 mg/dL (8.5-10.5); Carbon Dioxide 24 mmol/L (22-29); Chloride 105 mmol/L (98-107); Creatinine Clr Calc Pharmacy 66.1789; Globulin 2.7 g/dL (1.3-4.6); Glomerular Filtration Rate 98.8 mL/min (90-130); Glucose 145 mg/dL (65-115); Osmolality Calculated 290 mOsm/kg (285-295); Phosphorus 3.3 mg/dL (2.5-4.5); Potassium 3.5 mmol/L (3.5-5.1); Sodium 139 mmol/L (136-145); Total Bilirubin 0.2 mg/dL (0.15-1.2); Total Protein 6.1 g/dL (6.6-8.7)
[2022-03-11 06:42] LABS: Troponin 5 6HR Delta 0 ng/L (0-12)
[2022-03-11] MEDS: cholecalciferol (vitamin D3) 1,000 unit Tablet 1000 UNIT PO (10:24)
[2022-03-11] MEDS: ascorbic acid 500 mg Tablet PO ×2 (10:24→19:14)
[2022-03-11] MEDS: dexamethasone 10 mg/mL INJ 6 MG IVP (10:25)
[2022-03-11] MEDS: zinc gluconate 50 mg Tablet PO (10:26)
[2022-03-11] MEDS: levothyroxine 125 mcg Tablet PO (10:26)
[2022-03-11] MEDS: ondansetron 2 mg/ML SDV 2 mL 4 MG IVP (10:30)
--- NOTE | 2022-03-11 12:04 | CTR_ITS ---
PROCEDURE INFORMATION: Exam: CTA Chest With Contrast Exam date and time: 03/11/2022 8:25 PM Age: 71 years old Clinical indication: Abnormal findings; Abnormal diagnostic tests; Elevated d-dimer; Prior surgery; Surgery type: Gb; Patient HX: Cough with elevated d dimer. Covid +; Additional info: Covid, elevated d dimer TECHNIQUE: Imaging protocol: Computed tomographic angiography of the chest with contrast. 3D rendering (Not supervised by radiologist): MIP and/or 3D reconstructed images were created by the technologist. Radiation optimization: All CT scans at this facility use at least one of these dose optimization techniques: automated exposure control; mA and/or kV adjustment per patient size (includes targeted exams where dose is matched to clinical indication); or iterative reconstruction. Contrast material: OMNI 350; Contrast volume: 50 ml; Contrast route: INTRAVENOUS (IV); COMPARISON: CR XR chest 1V portable [id number] 03/10/2022 5:06 PM RADIATION DOSE METRICS: Total DLP (mGy-cm): 520.29 FINDINGS: Pulmonary arteries: No filling defects in the pulmonary arteries to suggest pulmonary embolism. Aorta: No evidence for aortic aneurysm. Evaluation for aortic dissection is limited due to the phase of contrast-enhancement. Trachea: Tracheobronchial structures are patent. Lungs: Reticulonodular interstitial thickening in both lungs, worse on the right. Pleural spaces: No pneumothorax. No pleural effusion. Heart: Mild enlargement of the heart. Calcification of the aortic valve. Esophagus: The esophagus is unremarkable. Lymph nodes: No lymphadenopathy. Diaphragm: Moderate hiatal hernia. Liver: The visualized liver is unremarkable. Gallbladder and bile ducts: Patient has had a previous cholecystectomy. Dilatation of the biliary ducts, not unexpected in a patient who has had a prior cholecystectomy. Pancreas: The visualized pancreas is unremarkable. No pancreatic ductal dilatation. Spleen: The visualized spleen is unremarkable. Adrenal glands: The right and left adrenal glands are unremarkable. Kidneys and ureters: The visualized right and left kidneys are unremarkable. Bones/joints: Multilevel degenerative changes of varying severity in the visualized spine. Soft tissues: No acute abnormality in the extrathoracic soft tissues. CT/CT angio chest PE protcl [id number] IMPRESSION: 1. Reticulonodular interstitial thickening in both lungs, worse on the right. These findings are not commonly seen in COVID-19 pneumonia. Findings are suspicious for a superimposed atypical bacterial pneumonia. Recommend followup chest imaging to insure resolution of these findings. 2. No evidence for pulmonary embolism. 3. Moderate hiatal hernia. 4. Incidental/nonacute findings are listed in the report.
--- NOTE | 2022-03-11 16:21 | PM.PN ---
Subjective Subjective: Patient was seen this morning, she tells me that she continues to feel fatigued and tired, no nausea, no vomiting, does have a poor appetite Vitals/I&O/Wt Last Vital Signs Temp 98.0 F 03/11/22 12:00 Pulse 58 L 03/11/22 12:00 Resp 18 03/11/22 12:00 BP 152/87 03/11/22 12:00 Pulse Ox 97 03/11/22 12:00 03/11/22 03/11/22 03/11/22 06:59 14:59 22:59 Intake Total 5 5 1240 / 1240 Balance 2004 1240 / 1240 Weight last 48 hrs Weight 71.214 kg Physical Exam Const: COMMON NORMALS: no acute distress and patient oriented x3 Resp: COMMON NORMALS: normal respiratory effort, No retractions, No use of accessory muscles and clear to auscultation bilaterally AUSCULTATION: clear to auscultation bilaterally Cardio: COMMON NORMALS: regular rate, regular rhythm, S1 normal heart sound present and S2 normal heart sound present RATE: regular rate RHYTHM: regular rhythm HEART SOUNDS: S1 normal heart sound present and S2 normal heart sound present GI: COMMON NORMALS: Normal to inspection, nondistended, normoactive bowel sounds present, Soft to palpation and non-tender PALPATION: Yes Soft to palpation Extremity: COMMON NORMALS: no pedal edema Neuro: COMMON NORMALS: patient oriented x3 Psych: COMMON NORMALS: mental status grossly normal Data : 03/11/22 05:11 03/11/22 05:11 Micro: Microbiology 03/11/22 04:32 Gram Stain - Final Sputum - Expectorated Sputum 03/10/22 14:56 Bacterial Antigens - Final Urine,Clean Catch 03/10/22 19:14 Blood Culture - Preliminary Blood SPECIMEN COLLECTED 03/10/22 19:14 Blood Culture - Preliminary Blood SPECIMEN COLLECTED A&P Assessment and plan (1) Pneumonia due to COVID-19 virus: Status: Acute (2) Lymphopenia: Status: Acute (3) Atypical pneumonia: Status: Acute Plan COVID-19 pneumonia -Hypoxia requiring 2 L -CT of the abdomen pelvis did show ?Reticulonodular interstitial thickening in the right middle lobe and right lower lobe. The patient is reportedly COVID-19 positive, these findings are not commonly seen in COVID-19 pneumonia however. Recommend clinical correlation for possible superimposed atypical bacterial pneumonia. Recommend followup chest imaging to insure resolution of these findings. 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
[2022-03-11] MEDS: remdesivir 100 MG in sodium chloride 0.9% (100 ml) 80 ML IV (19:12)
[2022-03-11] MEDS: enoxaparin 40 mg/0.4 mL Syringe SUBCUT (19:13)
[2022-03-11] MEDS: pantoprazole 40 mg SDV IVP (19:14)
[2022-03-11] MEDS: iohexol 350 mg/mL 100 mL Btl IV (20:30)
[2022-03-11] MEDS: azithromycin 500 MG in sodium chloride 0.9% 250 ML 250 MG IV (20:40)
[2022-03-11] MEDS: sennosides-docusate Tablet 1 TAB PO (20:40)
[2022-03-11] MEDS: cefTRIAXone 1,000 MG in sodium chloride 0.9% (plus) 50 ML 100 MG IV (20:40)
[2022-03-11] MEDS: trazodone 150 mg Tablet PO (20:40)
[2022-03-12] VITALS (7 sets, daily range): BP systolic 114–131; BP diastolic 70–80; PULSE 52–67; RESP 16–18; TEMP 36.5–37; O2SAT 90–98
[2022-03-12] MEDS: ondansetron 2 mg/ML SDV 2 mL 4 MG IVP ×2 (03:48→14:23)
[2022-03-12] MEDS: sodium chloride 0.9% 1,000 ML 100 ML IV ×2 (05:22→19:59)
--- NOTE | 2022-03-12 05:25 | PC.NURSE ---
Patient c/o nausea. PRN Zofran given. Patient still complaining of nausea and asking for something for it. Dr. Hoover notifie.
[2022-03-12] MEDS: zinc gluconate 50 mg Tablet PO (10:08)
[2022-03-12] MEDS: benzonatate 100 mg Capsule PO ×2 (10:08→20:27)
[2022-03-12] MEDS: ascorbic acid 500 mg Tablet PO ×2 (10:08→17:28)
[2022-03-12] MEDS: dexamethasone 10 mg/mL INJ 6 MG IVP (10:08)
[2022-03-12] MEDS: cholecalciferol (vitamin D3) 1,000 unit Tablet 1000 UNIT PO (10:08)
[2022-03-12] MEDS: levothyroxine 125 mcg Tablet PO (10:08)
[2022-03-12 11:23] LABS: Basophils % 0.3 %; Hematocrit 35.6 % (37.0-47.0); Hemoglobin 11.6 g/dL (11.5-15.3); Lymphocytes # 1.6 10^3/uL (0.8-4.8); Mean Corpuscular HGB Conc 32.6 g/dL (30.0-36.0); Mean Corpuscular Hemoglobin 31.8 pg (28.0-34.0); Mean Corpuscular Volume 97.5 fl (81-99); Mean Platelet Volume 10.6 fL (7.4-10.4); Monocytes # 0.2 10^3/uL (0.2-0.9); Monocytes % 7.1 %; Neutrophils # 1.53 10^3/uL (1.8-7.7); Neutrophils % 45.6 %; Nucleated Red Blood Cells % 0 %; Platelet Count 181 10^3/cmm (130-400); Red Blood Count 3.65 10^6/uL (4.1-5.3); Red Cell Distribution Width 12.1 % (12.1-15.1); White Blood Count 3.4 10^3/uL (4.0-10.0)
[2022-03-12 11:53] LABS: Alanine Aminotransferase 12 U/L (0-33); Albumin Level 3.2 g/dL (3.5-5.2); Alkaline Phosphatase 59 IU/L (35-105); Anion Gap 11.2 (5-19); Aspartate Amino Transferase 21 U/L (0-32); Blood Urea Nitrogen 9 mg/dL (8-23); Calcium 8.1 mg/dL (8.5-10.5); Carbon Dioxide 25 mmol/L (22-29); Chloride 108 mmol/L (98-107); Creatinine Clr Calc Pharmacy 66.1789; Globulin 2.6 g/dL (1.3-4.6); Glomerular Filtration Rate 98.8 mL/min (90-130); Glucose 82 mg/dL (65-115); Magnesium 1.9 mg/dL (1.7-2.3); Osmolality Calculated 290 mOsm/kg (285-295); Phosphorus 2.3 mg/dL (2.5-4.5); Potassium 3.2 mmol/L (3.5-5.1); Sodium 141 mmol/L (136-145); Total Bilirubin 0.2 mg/dL (0.15-1.2); Total Protein 5.8 g/dL (6.6-8.7)
--- NOTE | 2022-03-12 15:08 | PM.PN ---
Subjective Subjective: Patient was seen this morning, she tells me that she had a difficult night, no nausea, no vomiting, still on 2 L, no chest pain Vitals/I&O/Wt Last Vital Signs Temp 97.7 F 03/12/22 12:00 Pulse 57 L 03/12/22 12:00 Resp 17 03/12/22 12:00 BP 114/73 03/12/22 12:00 Pulse Ox 98 03/12/22 12:00 O2 Del Method 03/12/22 11:55 O2 Flow Rate 2 03/12/22 11:55 03/12/22 03/12/22 03/12/22 06:59 14:59 22:59 Intake Total 1000 / 2640 360 / 360 Balance 1000 / 2640 360 / 360 Physical Exam Const: COMMON NORMALS: no acute distress and patient oriented x3 Resp: COMMON NORMALS: normal respiratory effort, No retractions, No use of accessory muscles and clear to auscultation bilaterally AUSCULTATION: clear to auscultation bilaterally Cardio: COMMON NORMALS: regular rate, regular rhythm, S1 normal heart sound present and S2 normal heart sound present RATE: regular rate RHYTHM: regular rhythm HEART SOUNDS: S1 normal heart sound present and S2 normal heart sound present GI: COMMON NORMALS: Normal to inspection, nondistended, normoactive bowel sounds present, Soft to palpation, non-tender, No hepatosplenomegaly present and no bruits PALPATION: Yes Soft to palpation and Yes No hepatosplenomegaly present Extremity: COMMON NORMALS: no clubbing, cyanosis or edema and no pedal edema Neuro: COMMON NORMALS: patient oriented x3 Psych: COMMON NORMALS: mental status grossly normal Data : 03/12/22 10:22 03/12/22 10:22 Micro: Microbiology 03/11/22 04:32 Gram Stain - Final Sputum - Expectorated Sputum Sputum Culture - Preliminary 03/10/22 19:14 Blood Culture - Preliminary Blood NEGATIVE TO DATE 03/10/22 19:14 Blood Culture - Preliminary Blood NEGATIVE TO DATE A&P Assessment and plan (1) Pneumonia due to COVID-19 virus: Status: Acute (2) Lymphopenia: Status: Acute (3) Atypical pneumonia: Status: Acute Plan COVID-19 pneumonia -Hypoxia requiring 2 L -CT of the abdomen pelvis did show ?Reticulonodular interstitial thickening in the right middle lobe and right lower lobe. The patient is reportedly COVID-19 positive, these findings are not commonly seen in COVID-19 pneumonia however. Recommend clinical correlation for possible superimposed atypical bacterial pneumonia. Recommend followup chest imaging to insure resolution of these findings. CT angiogram of the chest -1. Reticulonodular interstitial thickening in both lungs, worse on the right. These findings are not commonly seen in COVID-19 pneumonia. Findings are suspicious for a superimposed atypical bacterial pneumonia. Recommend followup chest imaging to insure resolution of these findings. 2. No evidence for pulmonary embolism. 3. Moderate hiatal hernia. 4. Incidental/nonacute findings are listed in the report. 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
[2022-03-12] MEDS: enoxaparin 40 mg/0.4 mL Syringe SUBCUT (17:28)
[2022-03-12] MEDS: cyanocobalamin 1,000 mcg Tablet 1000 MCG PO (17:28)
[2022-03-12] MEDS: potassium chloride ER 20 mEq Tablet 40 MEQ PO (17:28)
[2022-03-12] MEDS: pantoprazole 40 mg SDV IVP (17:28)
[2022-03-12] MEDS: remdesivir 100 MG in sodium chloride 0.9% (100 ml) 80 ML IV (18:25)
[2022-03-12] MEDS: cefTRIAXone 1,000 MG in sodium chloride 0.9% (plus) 50 ML 100 MG IV (20:00)
[2022-03-12] MEDS: azithromycin 500 MG in sodium chloride 0.9% 250 ML 250 MG IV (20:00)
[2022-03-12] MEDS: trazodone 150 mg Tablet PO (20:01)
[2022-03-13] VITALS (7 sets, daily range): BP systolic 115–155; BP diastolic 65–90; PULSE 48–60; RESP 14–18; TEMP 36.5–37.1; O2SAT 96–98
[2022-03-13 07:04] LABS: Hematocrit 36.4 % (37.0-47.0); Hemoglobin 11.5 g/dL (11.5-15.3); Lymphocytes # 1.2 10^3/uL (0.8-4.8); Lymphocytes % 38.7 %; Mean Corpuscular HGB Conc 31.6 g/dL (30.0-36.0); Mean Corpuscular Hemoglobin 31.3 pg (28.0-34.0); Mean Corpuscular Volume 98.9 fl (81-99); Mean Platelet Volume 10.3 fL (7.4-10.4); Monocytes # 0.3 10^3/uL (0.2-0.9); Monocytes % 10.5 %; Neutrophils # 1.58 10^3/uL (1.8-7.7); Neutrophils % 50.5 %; Nucleated Red Blood Cells % 0 %; Platelet Count 171 10^3/cmm (130-400); Red Blood Count 3.68 10^6/uL (4.1-5.3); White Blood Count 3.1 10^3/uL (4.0-10.0)
[2022-03-13 07:36] LABS: Alanine Aminotransferase 15 U/L (0-33); Albumin Level 3.2 g/dL (3.5-5.2); Alkaline Phosphatase 66 IU/L (35-105); Anion Gap 12.8 (5-19); Aspartate Amino Transferase 20 U/L (0-32); Blood Urea Nitrogen 10 mg/dL (8-23); Calcium 8.5 mg/dL (8.5-10.5); Carbon Dioxide 25 mmol/L (22-29); Chloride 106 mmol/L (98-107); Creatinine Clr Calc Pharmacy 66.1789; Globulin 2.6 g/dL (1.3-4.6); Glomerular Filtration Rate 82.7 mL/min (90-130); Glucose 87 mg/dL (65-115); Magnesium 1.9 mg/dL (1.7-2.3); Osmolality Calculated 288 mOsm/kg (285-295); Potassium 3.8 mmol/L (3.5-5.1); Sodium 140 mmol/L (136-145); Total Bilirubin 0.2 mg/dL (0.15-1.2); Total Protein 5.8 g/dL (6.6-8.7)
[2022-03-13] MEDS: cholecalciferol (vitamin D3) 1,000 unit Tablet 1000 UNIT PO (09:11)
[2022-03-13] MEDS: dexamethasone 10 mg/mL INJ 6 MG IVP (09:11)
[2022-03-13] MEDS: levothyroxine 125 mcg Tablet PO (09:11)
[2022-03-13] MEDS: zinc gluconate 50 mg Tablet PO (09:11)
[2022-03-13] MEDS: ascorbic acid 500 mg Tablet PO ×2 (09:11→17:53)
[2022-03-13] MEDS: cyanocobalamin 1,000 mcg Tablet 1000 MCG PO (09:12)
--- NOTE | 2022-03-13 10:04 | PC.SOCIAL ---
IMM Update Imm updated with patient, copy of page 2 provided. Patient verbalized understanding. Copy initialed, dated and timed, placed in chart.
[2022-03-13] MEDS: lidocaine 2% viscous 15 ML, aluminum-mag hydrox-simethicon 30 ML, sucralfate oral liq 1 GM PO (10:28)
[2022-03-13] MEDS: benzonatate 100 mg Capsule 200 MG PO ×2 (10:29→22:10)
[2022-03-13] MEDS: pantoprazole DR 40 mg Tablet PO ×2 (10:29→17:53)
[2022-03-13] MEDS: sucralfate 1 gm Tablet PO ×3 (10:29→22:10)
--- NOTE | 2022-03-13 10:39 | PC.SOCIAL ---
IMM Update Imm updated with patient, copy of page 2 provided. Patient verbalized understanding. Copy initialed, dated and timed, placed in chart.
--- NOTE | 2022-03-13 12:06 | PM.PN ---
Subjective Subjective: Patient was seen this morning, she continues to complain of severe cough, acid reflux, she has had some brown-tinged sputum with her acid reflux she feels, she only got 2 hours of sleep last night no chest pain, no nausea, vomiting, she does report a severe history of acid reflux, hiatal hernia, she needs to have a Niesen fundoplication but has been delaying the surgery, she is worried about further delaying the surgery with her COVID infection, she is worried about the lung damage related to her COVID infection Vitals/I&O/Wt Last Vital Signs Temp 97.7 F 03/13/22 11:57 Pulse 55 L 03/13/22 11:57 Resp 16 03/13/22 11:57 BP 147/75 03/13/22 11:57 Pulse Ox 96 03/13/22 11:57 O2 Del Method 03/13/22 09:57 O2 Flow Rate 1 03/13/22 09:57 03/12/22 03/13/22 03/13/22 22:59 06:59 14:59 Intake Total 1480 / 1840 960 / 2800 1640 / 1640 Balance 1480 / 1840 960 / 2800 1640 / 1640 Physical Exam Const: COMMON NORMALS: no acute distress and patient oriented x3 Resp: COMMON NORMALS: normal respiratory effort, No retractions, No use of accessory muscles and clear to auscultation bilaterally AUSCULTATION: clear to auscultation bilaterally Cardio: COMMON NORMALS: regular rate, regular rhythm, S1 normal heart sound present and S2 normal heart sound present RATE: regular rate RHYTHM: regular rhythm HEART SOUNDS: S1 normal heart sound present and S2 normal heart sound present GI: COMMON NORMALS: Normal to inspection, nondistended, normoactive bowel sounds present, Soft to palpation and non-tender PALPATION: Yes Soft to palpation Extremity: COMMON NORMALS: no pedal edema Neuro: COMMON NORMALS: patient oriented x3 Psych: COMMON NORMALS: mental status grossly normal Data : 03/13/22 06:58 03/13/22 06:58 Micro: Microbiology 03/11/22 04:32 Gram Stain - Final Sputum - Expectorated Sputum Sputum Culture - Final A&P Assessment and plan (1) Pneumonia due to COVID-19 virus: Status: Acute (2) Lymphopenia: Status: Acute (3) Atypical pneumonia: Status: Acute Plan COVID-19 pneumonia -Hypoxia requiring 2 L -CT of the abdomen pelvis did show ?Reticulonodular interstitial thickening in the right middle lobe and right lower lobe. The patient is reportedly COVID-19 positive, these findings are not commonly seen in COVID-19 pneumonia however. Recommend clinical correlation for possible superimposed atypical bacterial pneumonia. Recommend followup chest imaging to insure resolution of these findings. CT angiogram of the chest -1. Reticulonodular interstitial thickening in both lungs, worse on the right. These findings are not commonly seen in COVID-19 pneumonia. Findings are suspicious for a superimposed atypical bacterial pneumonia. Recommend followup chest imaging to insure resolution of these findings. 2. No evidence for pulmonary embolism. 3. Moderate hiatal hernia. 4. Incidental/nonacute findings are listed in the report. -With evidence of dehydration -With evidence of lymphopenia, neutropenia -IV fluids -Decadron -Remdesivir -Rocephin and azithromycin -Vitamin C, zinc, vitamin D -Follow blood cultures, sputum cultures, urine bacterial antigens -incentive spirometer, flutter valve - Lovenox for DVT prophylaxis -Full code -Increased Protonix to 40 twice daily, add Carafate for acid reflux, GI cocktail -Severe cough increase Tessalon Perles to 200 3 times daily as needed -Add Ambien as needed for sleep Attestations Medical Necessity Statement*: Patient requires hospitalization for COVID-19 pneumonia Coding Level of Care Code 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
[2022-03-13] MEDS: enoxaparin 40 mg/0.4 mL Syringe SUBCUT (17:57)
[2022-03-13] MEDS: sodium chloride 0.9% 1,000 ML 50 ML IV (17:57)
[2022-03-13] MEDS: remdesivir 100 MG in sodium chloride 0.9% (100 ml) 80 ML IV (18:11)
[2022-03-13] MEDS: cefTRIAXone 1,000 MG in sodium chloride 0.9% (plus) 50 ML 100 MG IV (20:00)
[2022-03-13] MEDS: azithromycin 500 MG in sodium chloride 0.9% 250 ML 250 MG IV (20:58)
[2022-03-13] MEDS: trazodone 150 mg Tablet PO (22:10)
[2022-03-13] MEDS: zolpidem 5 mg Tablet PO (22:10)
[2022-03-13] MEDS: sennosides-docusate Tablet 1 TAB PO (22:13)
[2022-03-14] VITALS (7 sets, daily range): BP systolic 122–162; BP diastolic 79–93; PULSE 50–62; RESP 12–18; TEMP 36.8–37.6; O2SAT 94–97
[2022-03-14 03:55] LABS: Hematocrit 34.6 % (37.0-47.0); Hemoglobin 11.3 g/dL (11.5-15.3); Lymphocytes # 0.9 10^3/uL (0.8-4.8); Lymphocytes % 34.3 %; Mean Corpuscular HGB Conc 32.7 g/dL (30.0-36.0); Mean Corpuscular Hemoglobin 31.3 pg (28.0-34.0); Mean Corpuscular Volume 95.8 fl (81-99); Mean Platelet Volume 10.7 fL (7.4-10.4); Monocytes # 0.3 10^3/uL (0.2-0.9); Monocytes % 9.6 %; Neutrophils # 1.51 10^3/uL (1.8-7.7); Neutrophils % 55.7 %; Nucleated Red Blood Cells % 0 %; Platelet Count 168 10^3/cmm (130-400); Red Blood Count 3.61 10^6/uL (4.1-5.3); Red Cell Distribution Width 11.9 % (12.1-15.1); White Blood Count 2.7 10^3/uL (4.0-10.0)
[2022-03-14 04:20] LABS: Alanine Aminotransferase 24 U/L (0-33); Albumin Level 3.1 g/dL (3.5-5.2); Alkaline Phosphatase 62 IU/L (35-105); Anion Gap 12.7 (5-19); Aspartate Amino Transferase 21 U/L (0-32); Blood Urea Nitrogen 9 mg/dL (8-23); C Reactive Protein 3.4 mg/L (0.0-4.9); Calcium 8.2 mg/dL (8.5-10.5); Carbon Dioxide 26 mmol/L (22-29); Chloride 107 mmol/L (98-107); Creatinine Clr Calc Pharmacy 66.1789; Globulin 2.6 g/dL (1.3-4.6); Glucose 110 mg/dL (65-115); Magnesium 2.2 mg/dL (1.7-2.3); Osmolality Calculated 293 mOsm/kg (285-295); Phosphorus 2.9 mg/dL (2.5-4.5); Potassium 3.7 mmol/L (3.5-5.1); Sodium 142 mmol/L (136-145); Total Bilirubin 0.2 mg/dL (0.15-1.2); Total Protein 5.7 g/dL (6.6-8.7)
[2022-03-14 04:25] LABS: NT Pro B Type Natriuretic Pept 1077 pg/mL (0-125)
[2022-03-14] MEDS: sucralfate 1 gm Tablet PO ×3 (06:05→22:37)
[2022-03-14] MEDS: ascorbic acid 500 mg Tablet PO ×2 (09:37→17:40)
[2022-03-14] MEDS: cholecalciferol (vitamin D3) 1,000 unit Tablet 1000 UNIT PO (09:37)
[2022-03-14] MEDS: levothyroxine 125 mcg Tablet PO (09:37)
[2022-03-14] MEDS: FUROsemide 10 mg/mL SDV 4mL 40 MG IVP (09:37)
[2022-03-14] MEDS: pantoprazole DR 40 mg Tablet PO ×2 (09:37→17:40)
[2022-03-14] MEDS: dexamethasone 10 mg/mL INJ 6 MG IVP (09:37)
[2022-03-14] MEDS: cyanocobalamin 1,000 mcg Tablet 1000 MCG PO (09:37)
[2022-03-14] MEDS: zinc gluconate 50 mg Tablet PO (09:37)
[2022-03-14] MEDS: benzonatate 100 mg Capsule 200 MG PO (09:54)
[2022-03-14] MEDS: lidocaine 2% viscous 15 ML, aluminum-mag hydrox-simethicon 30 ML, sucralfate oral liq 1 GM PO (11:11)
--- NOTE | 2022-03-14 13:51 | PM.PN ---
Subjective Subjective: Patient was seen this morning, she continues to have cough, severe acid reflux Vitals/I&O/Wt Last Vital Signs Temp 98.8 F 03/14/22 12:00 Pulse 53 L 03/14/22 12:00 Resp 18 03/14/22 12:00 BP 136/85 03/14/22 12:00 Pulse Ox 97 03/14/22 12:00 O2 Del Method 03/14/22 12:00 O2 Flow Rate 1 03/14/22 08:00 03/13/22 03/14/22 03/14/22 22:59 06:59 14:59 Intake Total 480 / 2360 360 / 2720 1508.33 / 1508.33 Balance 480 / 2360 360 / 2720 1508.33 / 1508.33 Physical Exam Const: COMMON NORMALS: no acute distress and patient oriented x3 Resp: COMMON NORMALS: normal respiratory effort, No retractions, No use of accessory muscles and clear to auscultation bilaterally AUSCULTATION: clear to auscultation bilaterally Cardio: COMMON NORMALS: regular rate, regular rhythm, S1 normal heart sound present and S2 normal heart sound present RATE: regular rate RHYTHM: regular rhythm HEART SOUNDS: S1 normal heart sound present and S2 normal heart sound present GI: COMMON NORMALS: Normal to inspection, nondistended, normoactive bowel sounds present and non-tender Extremity: COMMON NORMALS: no pedal edema Neuro: COMMON NORMALS: patient oriented x3 Psych: COMMON NORMALS: mental status grossly normal Data : 03/14/22 02:57 03/14/22 02:57 Micro: Microbiology 03/11/22 04:32 Gram Stain - Final Sputum - Expectorated Sputum Sputum Culture - Final A&P Assessment and plan (1) Pneumonia due to COVID-19 virus: Status: Acute (2) Lymphopenia: Status: Acute (3) Atypical pneumonia: Status: Acute Plan COVID-19 pneumonia -Hypoxia requiring 2 L -CT of the abdomen pelvis did show ?Reticulonodular interstitial thickening in the right middle lobe and right lower lobe. The patient is reportedly COVID-19 positive, these findings are not commonly seen in COVID-19 pneumonia however. Recommend clinical correlation for possible superimposed atypical bacterial pneumonia. Recommend followup chest imaging to insure resolution of these findings. CT angiogram of the chest -1. Reticulonodular interstitial thickening in both lungs, worse on the right. These findings are not commonly seen in COVID-19 pneumonia. Findings are suspicious for a superimposed atypical bacterial pneumonia. Recommend followup chest imaging to insure resolution of these findings. 2. No evidence for pulmonary embolism. 3. Moderate hiatal hernia. 4. Incidental/nonacute findings are listed in the report. -With evidence of dehydration -With evidence of lymphopenia, neutropenia -Stop IV fluids -Decadron -Remdesivir for a 5 -Rocephin and azithromycin -Vitamin C, zinc, vitamin D -Follow blood cultures, sputum cultures, urine bacterial antigens -incentive spirometer, flutter valve - Lovenox for DVT prophylaxis -Full code -Increased Protonix to 40 twice daily, add Carafate for acid reflux, GI cocktail -Severe cough increase Tessalon Perles to 200 3 times daily as needed -Add Ambien as needed for sleep -Sinus bradycardia continue to monitor -1 dose of Lasix Attestations Medical Necessity Statement*: Patient requires hospitalization for COVID-19 pneumonia, atypical pneumonia Coding Level of Care Code 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
[2022-03-14] MEDS: enoxaparin 40 mg/0.4 mL Syringe SUBCUT (17:40)
[2022-03-14] MEDS: remdesivir 100 MG in sodium chloride 0.9% (100 ml) 80 ML IV (18:11)
[2022-03-14] MEDS: trazodone 150 mg Tablet PO (20:49)
[2022-03-14] MEDS: sennosides-docusate Tablet 1 TAB PO (20:49)
[2022-03-14] MEDS: ondansetron 2 mg/ML SDV 2 mL 4 MG IVP (21:28)
[2022-03-14] MEDS: azithromycin 500 MG in sodium chloride 0.9% 250 ML 250 MG IV (21:30)
[2022-03-14] MEDS: zolpidem 5 mg Tablet PO (22:20)
[2022-03-14] MEDS: acetaminophen-codeine 120-12 mg/5 mL UDC PO (22:20)
[2022-03-14] MEDS: cefTRIAXone 1,000 MG in sodium chloride 0.9% (plus) 50 ML 100 MG IV (22:47)
[2022-03-15] VITALS (7 sets, daily range): BP systolic 119–137; BP diastolic 59–80; PULSE 55–62; RESP 13–17; TEMP 36.9–37.6; O2SAT 92–97
[2022-03-15 05:54] LABS: Hematocrit 39.8 % (37.0-47.0); Hemoglobin 12.8 g/dL (11.5-15.3); Lymphocytes # 1.7 10^3/uL (0.8-4.8); Lymphocytes % 34.5 %; Mean Corpuscular HGB Conc 32.2 g/dL (30.0-36.0); Mean Corpuscular Hemoglobin 31.4 pg (28.0-34.0); Mean Corpuscular Volume 97.8 fl (81-99); Mean Platelet Volume 10.8 fL (7.4-10.4); Monocytes # 0.5 10^3/uL (0.2-0.9); Monocytes % 10.1 %; Neutrophils # 2.71 10^3/uL (1.8-7.7); Nucleated Red Blood Cells % 0 %; Platelet Count 196 10^3/cmm (130-400); Red Blood Count 4.07 10^6/uL (4.1-5.3); Red Cell Distribution Width 11.7 % (12.1-15.1); White Blood Count 4.9 10^3/uL (4.0-10.0)
[2022-03-15 06:40] LABS: Alanine Aminotransferase 33 U/L (0-33); Albumin Level 3.6 g/dL (3.5-5.2); Alkaline Phosphatase 71 IU/L (35-105); Aspartate Amino Transferase 28 U/L (0-32); Blood Urea Nitrogen 13 mg/dL (8-23); Calcium 8.7 mg/dL (8.5-10.5); Carbon Dioxide 29 mmol/L (22-29); Chloride 103 mmol/L (98-107); Creatinine Clr Calc Pharmacy 66.1789; Globulin 2.9 g/dL (1.3-4.6); Glucose 94 mg/dL (65-115); Magnesium 2.4 mg/dL (1.7-2.3); NT Pro B Type Natriuretic Pept 377 pg/mL (0-125); Osmolality Calculated 290 mOsm/kg (285-295); Phosphorus 2.8 mg/dL (2.5-4.5); Sodium 140 mmol/L (136-145); Total Bilirubin 0.4 mg/dL (0.15-1.2); Total Protein 6.5 g/dL (6.6-8.7)
[2022-03-15] MEDS: cholecalciferol (vitamin D3) 1,000 unit Tablet 1000 UNIT PO (09:37)
[2022-03-15] MEDS: zinc gluconate 50 mg Tablet PO (09:37)
[2022-03-15] MEDS: pantoprazole DR 40 mg Tablet PO (09:37)
[2022-03-15] MEDS: cyanocobalamin 1,000 mcg Tablet 1000 MCG PO (09:37)
[2022-03-15] MEDS: dexamethasone 10 mg/mL INJ 6 MG IVP (09:37)
[2022-03-15] MEDS: levothyroxine 125 mcg Tablet PO (09:37)
[2022-03-15] MEDS: ascorbic acid 500 mg Tablet PO (09:37)
[2022-03-15] MEDS: sucralfate 1 gm Tablet PO (09:39)
[2022-03-15] MEDS: acetaminophen-codeine 120-12 mg/5 mL UDC PO (09:47)
[2022-03-15] MEDS: benzonatate 100 mg Capsule 200 MG PO (09:47)
[2022-03-15] MEDS: ondansetron 2 mg/ML SDV 2 mL 4 MG IVP (09:47)
--- NOTE | 2022-03-15 10:35 | PC.SOCIAL ---
IMM update IMM updated with patient. Verbalized an understanding. Initialled, dated, timed, and placed in chart.
--- NOTE | 2022-03-15 11:09 | PM.DCS ---
Discharge Providers Date of Admission: 03/10/22 18:24 Date of Discharge: March 15, 2022 Attending Provider at Admission: Gumaro Hinojosa MD Attending Provider at Discharge: Gumaro Hinojosa MD Diagnoses at Discharge Discharge Diagnosis (1) Pneumonia due to COVID-19 virus: Status: Acute (2) Lymphopenia: Status: Acute (3) Atypical pneumonia: Status: Acute Reason for Visit Reason for Visit: abd pain, covid + Hospital Course Hospital Course This is a 71-year-old female with no significant past medical history, who presents [facility] due to cough, shortness of breath Patient was admitted to [facility] for COVID-19 pneumonia, hypoxia, with atypical pneumonia, admitted received 5 days of remdesivir, broad-spectrum antibiotic therapy, cultures were negative, steroid therapy, inhaler therapy, vitamin therapy, clinically monitored. Patient slowly clinically improved, discharged onto room air, with antibiotics, steroids, inhalers, instructions to continue to self isolate, socially distance, facemask, hand wash, follow-up with primary care provider and pulmonary as outpatient. In terms of hypercoagulability prophylaxis, she remained mobile during her inpatient stay, advised to monitor for hypercoagulability events, advised she is at high risk of hypercoagulability events, discussed risk and benefits of anticoagulations, advised that there is no clear studies about anticoagulation in COVID-19 patients, but patient is discharged with COVID-19 have increased risk of hypercoagulability events, however she remains mobile, discussed aspirin, discussed risk and benefits, she voiced understanding all questions answered, agreed to proceed, take aspirin as prescribed, follow-up with primary care provider - For your COVID-19 pneumonia, continue to self isolate, socially distance, facemask, handwashing -Take Tylenol for fevers -Take antibiotics and steroids and inhalers and multivitamins as prescribed -Please discuss with primary care provider about COVID-19 vaccination within a month, but strongly suggested -Please continue to hydrate well, at least 2 L of fluid a day -For COVID-19 infection, you are at risk of hypercoagulability events, discharged on aspirin once daily -However you still have a risk of hypercoagulability events including blood clots -If you develop chest pain, strokelike symptoms or calf pain or calf swelling or sudden onset shortness of breath or bloody cough please call 911 -Please continue to ambulate -Continue to self isolate at least 21 days since symptom onset -Please follow-up with your primary care provider in the least a week -Follow-up with your lung doctor in a month Physical Exam Const: COMMON NORMALS: no acute distress and patient oriented x3 Resp: COMMON NORMALS: normal respiratory effort, No retractions, No use of accessory muscles and clear to auscultation bilaterally AUSCULTATION: clear to auscultation bilaterally Cardio: COMMON NORMALS: regular rate, regular rhythm, S1 normal heart sound present and S2 normal heart sound present RATE: regular rate RHYTHM: regular rhythm HEART SOUNDS: S1 normal heart sound present and S2 normal heart sound present GI: COMMON NORMALS: Normal to inspection, nondistended, normoactive bowel sounds present, Soft to palpation and non-tender PALPATION: Yes Soft to palpation Extremity: COMMON NORMALS: capillary refill normal, no clubbing, cyanosis or edema and no pedal edema Neuro: COMMON NORMALS: patient oriented x3 Psych: COMMON NORMALS: mental status grossly normal Discharge Data Studies Completed and Pending Completed Studies During Hospitalization Category Date Time Status CT abdomen pelvis w con* [id number] Urgent Cat Scan 03/10/22 14:[address] angio chest PE protcl [id number] Routine Cat Scan 03/11/22 12:04 Completed XR chest 1V portable [id number] Urgent Exams 03/10/22 16:39 Completed Pending at discharge Category Date Time Status Blood Culture Stat Lab 03/10/22 19:14 Results C Reactive Protein AM LABS Lab 03/16/22 04:00 Ordered Complete Blood Count w/Auto AM LABS Lab 03/16/22 04:00 Ordered Comprehensive Metabolic Panel AM LABS Lab 03/16/22 04:00 Ordered Magnesium AM LABS Lab 03/16/22 04:00 Ordered NT Pro B Type Natriuretic Pept QAM Lab 03/16/22 06:00 Ordered Phosphorus AM LABS Lab 03/16/22 04:00 Ordered Radiology Impressions Abdomen/Pelvis CT 03/10/22 14:33 IMPRESSION: 1. Reticulonodular interstitial thickening in the right middle lobe and right lower lobe. The patient is reportedly COVID-19 positive, these findings are not commonly seen in COVID-19 pneumonia however. Recommend clinical correlation for possible superimposed atypical bacterial pneumonia. Recommend followup chest imaging to insure resolution of these findings. 2. Fluid within the small bowel and colon without evidence of bowel wall thickening. This may reflect viral gastroenteritis in the appropriate clinical situation. 3. Scattered diverticula in the sigmoid colon. No evidence for diverticulitis. 4. Moderate hiatal hernia. 5. Small fat-containing umbilical hernia. No evidence for strangulation. 6. Incidental/nonacute findings are listed in the report. COMMENTS: Consistent with the [employer]'s Incidental Findings Committee white paper (J Am Renee Radiol 2018): Any incidental renal lesion less than 1 cm or classified as too small to characterize, or any incidental cystic renal lesion characterized as simple-appearing, is likely benign. No follow-up imaging is recommended for these lesions per consensus recommendations based on imaging criteria. ADDENDUM: 03/10/221822 Urgent results were discussed with DAVE Alberto on 03/10/2022 at 6:21 PM CDT. Chest X-Ray 03/10/22 16:39 IMPRESSION: 1. Reticulonodular interstitial thickening in the right lung, suspicious for atypical bacterial pneumonia (patient is reportedly COVID-19 positive, these findings are atypical for COVID-19 pneumonia). Recommend followup chest imaging to insure resolution of these findings. 2. Incidental/nonacute findings are listed in the report. ADDENDUM: 03/10/221822 Urgent results were discussed with DAVE Alberto on 03/10/2022 at 6:22 PM CDT. Chest CTA 03/11/22 12:04 IMPRESSION: 1. Reticulonodular interstitial thickening in both lungs, worse on the right. These findings are not commonly seen in COVID-19 pneumonia. Findings are suspicious for a superimposed atypical bacterial pneumonia. Recommend followup chest imaging to insure resolution of these findings. 2. No evidence for pulmonary embolism. 3. Moderate hiatal hernia. 4. Incidental/nonacute findings are listed in the report. Laboratory Results WBC 4.9 10^3/uL (4.0-10.0) 03/15/22 05:09 RBC 4.07 10^6/uL (4.1-5.3) L 03/15/22 05:09 Hgb 12.8 g/dL (11.5-15.3) 03/15/22 05:09 Hct 39.8 % (37.0-47.0) 03/15/22 05:09 MCV 97.8 fl (81-99) 03/15/22 05:09 MCH 31.4 pg (28.0-34.0) 03/15/22 05:09 MCHC 32.2 g/dL (30.0-36.0) 03/15/22 05:09 RDW 11.7 % (12.1-15.1) L 03/15/22 05:09 Plt Count 196 10^3/cmm (130-400) 03/15/22 05:09 MPV 10.8 fL (7.4-10.4) H 03/15/22 05:09 Neut % (Auto) 55.0 % 03/15/22 05:09 Lymph % (Auto) 34.5 % 03/15/22 05:09 [place] % (Auto) 10.1 % 03/15/22 05:09 Eos % (Auto) 0.0 % 03/15/22 05:09 Baso % (Auto) 0.0 % 03/15/22 05:09 Neut # (Auto) 2.71 10^3/uL (1.8-7.7) 03/15/22 05:09 Lymph # (Auto) 1.7 10^3/uL (0.8-4.8) 03/15/22 05:09 [place] # (Auto) 0.5 10^3/uL (0.2-0.9) 03/15/22 05:09 Eos # (Auto) 0.0 10^3/uL (0.0-0.8) 03/15/22 05:09 Baso # (Auto) 0.0 10^3/uL (0.0-0.1) 03/15/22 05:09 Nucleated RBC % (auto) 0 % 03/15/22 05:09 Nucleated RBCs # 0.0 /100WBC 03/15/22 05:09 PT 14.70 SECONDS (12.1-14.9) 03/10/22 19:00 INR 1.11 (0.8-1.2) 03/10/22 19:00 D-Dimer 1.60 ug/mIFEU (0-0.59) H 03/10/22 19:00 Sodium 140 mmol/L (136-145) 03/15/22 05:09 Potassium 4.0 mmol/L (3.5-5.1) 03/15/22 05:09 Chloride 103 mmol/L (98-107) 03/15/22 05:09 Carbon Dioxide 29 mmol/L (22-29) 03/15/22 05:09 Anion Gap 12.0 (5-19) 03/15/22 05:09 BUN 13 mg/dL (8-23) 03/15/22 05:09 Creatinine 0.5 mg/dL (0.5-0.9) 03/15/22 05:09 GFR Calculation 122.0 mL/min (90-130) 03/15/22 05:09 Glucose 94 mg/dL (65-115) 03/15/22 05:09 Calculated Osmolality 290 mOsm/kg (285-295) 03/15/22 05:09 Lactic Acid 0.5 mmol/L (0.5-2.2) 03/10/22 19:00 Calcium 8.7 mg/dL (8.5-10.5) 03/15/22 05:09 Phosphorus 2.8 mg/dL (2.5-4.5) 03/15/22 05:09 Magnesium 2.4 mg/dL (1.7-2.3) H 03/15/22 05:09 Total Bilirubin 0.4 mg/dL (0.15-1.2) 03/15/22 05:09 AST 28 U/L (0-32) 03/15/22 05:09 ALT 33 U/L (0-33) 03/15/22 05:09 Alkaline Phosphatase 71 IU/L (35-105) 03/15/22 05:09 Troponin T Baseline 6 ng/L (0-10) 03/10/22 19:00 Troponin T 120 Minute 6.00 ng/L (0-10) 03/10/22 22:20 Delta Troponin T 0 ABS# (0-10) 03/10/22 22:20 Troponin T Hi Sens 6Hr 6.00 ng/L (0-10) 03/11/22 05:11 Troponin T Hi Sens 6Hr Delta 0 ng/L (0-12) 03/11/22 05:11 C-Reactive Protein 3.0 mg/L (0.0-4.9) 03/15/22 05:09 NT-Pro-B Natriuret Pep 377 pg/mL (0-125) H 03/15/22 05:09 Total Protein 6.5 g/dL (6.6-8.7) L 03/15/22 05:09 Albumin 3.6 g/dL (3.5-5.2) 03/15/22 05:09 Globulin 2.9 g/dL (1.3-4.6) 03/15/22 05:09 Lipase 46 U/L (13-60) 03/10/22 14:56 Procalcitonin 0.06 ng/mL (0-0.5) 03/10/22 19:00 TSH 0.03 uIU/mL (0.27-4.20) L 03/10/22 19:00 Urine Color Dark yellow (Yellow) 03/10/22 14:56 Urine Appearance Clear (CLEAR) 03/10/22 14:56 Urine pH 6 (5-7) 03/10/22 14:56 Ur Specific [place] 1.020 (1.005-1.030) 03/10/22 14:56 Urine Protein Trace (Negative) 03/10/22 14:56 Urine Glucose (UA) Norm (Normal) 03/10/22 14:56 Urine Ketones 1+ (Negative) H 03/10/22 14:56 Urine Blood 2+ (Negative) H 03/10/22 14:56 Urine Nitrate Negative (Negative) 03/10/22 14:56 Urine Bilirubin Neg (Negative) 03/10/22 14:56 Urine Urobilinogen Norm mg/dL (Negative) 03/10/22 14:56 Ur Leukocyte Esterase Negative (Negative) 03/10/22 14:56 Urine RBC 5-10 /hpf (0-2) H 03/10/22 14:56 Urine WBC 0-4 /hpf (0-5) H 03/10/22 14:56 Ur Squamous Epith Cells 5-10 /hpf (0-5) H 03/10/22 14:56 Amorphous Sediment Not Reportable 03/10/22 14:56 Urine Bacteria 1+ /hpf (NONE) H 03/10/22 14:56 Urine Mucus 1+ /hpf 03/10/22 14:56 SARS-CoV-2 Ag (Rapid) Positive (Negative) H 03/10/22 14:56 Vitals Last Vital Signs Temp 98.4 F 03/15/22 07:47 Pulse 56 L 03/15/22 07:47 Resp 17 03/15/22 07:47 BP 137/64 03/15/22 07:47 Pulse Ox 93 03/15/22 07:47 O2 Del Method 03/15/22 04:00 O2 Flow Rate 1 03/15/22 04:00 Discharge Plan Discharge Patient Disposition: Home Condition: Stable Prescriptions: New acetaminophen 500 mg tablet 500 mg PO Q6H PRN (Reason: pain) 5 Days Qty: 20 0RF acetaminophen-codeine 120 mg-12 mg /5 mL (5 mL) Solution 5 ml PO Q12H PRN (Reason: severe cough) 5 Days Qty: 50 0RF Vitamin C 500 mg Tablet 500 mg PO BID 30 Days Qty: 60 0RF benzonatate 100 mg Capsule 200 mg PO TID PRN (Reason: Cough) 7 Days Qty: 42 0RF sucralfate 1 gram Tablet 1 g PO AC&BEDTIME 30 Days Qty: 60 0RF Vitamin B-12 1,000 mcg Tablet 1,000 mcg PO DAILY 30 Days Qty: 30 0RF pantoprazole 40 mg Tablet,Delayed Release (Dr/Ec) 40 mg PO BID 30 Days Qty: 60 0RF zinc gluconate 50 mg Tablet 50 mg PO DAILY 30 Days Qty: 30 0RF cholecalciferol (vitamin D3) 25 mcg (1,000 unit) Tablet 1,000 unit PO DAILY 30 Days Qty: 30 0RF albuterol sulfate 90 mcg/actuation HFA aerosol inhaler 1 inh inhalation Q6H PRN (Reason: shortness of breath or wheezing) Qty: 8.5 0RF Advair Diskus 100-50 mcg/dose blister with device 1 inh inhalation BID Qty: 60 0RF Decadron 4 mg tablet 4 mg PO DAILY 3 Days Qty: 3 0RF aspirin 81 mg capsule 81 mg PO DAILY 30 Days Qty: 30 0RF doxycycline hyclate 100 mg tablet 100 mg PO BID 5 Days Qty: 10 0RF Continued trazodone 150 mg Tablet 150 mg PO BEDTIME levothyroxine 125 mcg Tablet 125 mcg PO DAILY Senna-S 8.6-50 mg Tablet 1 tab-cap PO BEDTIME Discontinued omeprazole 40 mg Capsule,Delayed Release(Dr/Ec) 40 mg PO BID Discharge Orders: Discharge Order (Routine); Ordered 03/15/22 Ordered By: Gumaro Hinojosa Referrals: Paula Rodriguez MD [Physician] - 1 month (Please call Thursday to schedule a follow up appointment covid) Discharge Diet: Advance as tolerated Discharge Activity: Increase activity as tolerated Patient Instructions: Benzonatate (By mouth), Sucralfate (By mouth), Doxycycline (By mouth), Acetaminophen/Codeine (By mouth), Albuterol (By mouth), Aspirin (By mouth), Dexamethasone (By mouth), Pantoprazole (By mouth), Fluticasone/Salmeterol (By breathing), Abdominal Pain (ED), COVID-19 (Coronavirus Disease 2019) (GEN), Opioid Safety, Pneumonia Stoplight, Pneumonia - Viral Activity Restrictions/Additional Instructions: - For your COVID-19 pneumonia, continue to self isolate, socially distance, facemask, handwashing -Take Tylenol for fevers -Take antibiotics and steroids and inhalers and multivitamins as prescribed -Please discuss with primary care provider about COVID-19 vaccination within a month, but strongly suggested -Please continue to hydrate well, at least 2 L of fluid a day -For COVID-19 infection, you are at risk of hypercoagulability events, discharged on aspirin once daily -However you still have a risk of hypercoagulability events including blood clots -If you develop chest pain, strokelike symptoms or calf pain or calf swelling or sudden onset shortness of breath or bloody cough please call 911 -Please continue to ambulate -Continue to self isolate at least 21 days since symptom onset -Please follow-up with your primary care provider in the least a week -Follow-up with your lung doctor in a month Discharge Attestations Time Spent in Discharge Care*: less than 30 min Quality Metrics Clinical Quality Measures [ No reported AMI, CVA or VTE this stay] Coding Level of Care Code Acute Chg FW DC note Diagnoses Pneumonia due to COVID-19 virus U07.1; J12.82 Lymphopenia D72.810 Atypical pneumonia J18.9
== END 2022-03-15 13:45 | disposition home or self-care (01) | DRG 177 ==
LOC: ER 18:04 → MEDSURG 18:24
PROVIDERS: Admitting Provider Family Medicine; Emergency Provider Emergency Medicine; Visit Provider Family Medicine
DX: U07.1 COVID-19 (principal); J12.82 Pneumonia due to coronavirus disease 2019; J18.9 Pneumonia, unspecified organism; E03.9 Hypothyroidism, unspecified; E86.0 Dehydration; D70.9 Neutropenia, unspecified; Z79.891 Long term (current) use of opiate analgesic
CPT/HCPCS: 36415; 71045; 71275; 74177; 80053; 81001; 83605; 83690; 83735; 83880; 84100; 84145; 84443; 84484; 85025; 85378; 85610; 86140; 86403; 87040; 87070; 87205; 87426; 93005; 96365; 96372; 96375; 99285; C9113; J0456; J0696; J1100; J1650; J1940; J2405; J7030; J7050; Q9967

== ENCOUNTER → 2022-04-08 11:55 | Outpatient (BNVA) | payer MEDICARE, SELFPAY | PROVIDERS: PCP Physician Assistant; Visit Provider Registered Nurse Neonatal Intensive Care | DX: S89.91XA Unspecified injury of right lower leg, initial encounter (principal); X58.XXXA Exposure to other specified factors, initial encounter | CPT/HCPCS: 73562 ==

== ENCOUNTER → 2022-04-14 13:02 | Outpatient (BNVA) | payer MEDICARE, SELFPAY | PROVIDERS: PCP Physician Assistant; Visit Provider Internal Medicine Critical Care Medicine | DX: R05.3 Chronic cough (principal); K44.9 Diaphragmatic hernia without obstruction or gangrene; Z86.16 Personal history of COVID-19; Z87.891 Personal history of nicotine dependence | CPT/HCPCS: 99203; 99204 ==

== ENCOUNTER 2022-07-30 13:52 | Outpatient (CLI) | payer MEDICARE, SELFPAY ==
--- NOTE | 2022-07-30 14:36 | XR_ITS ---
WS: [email or web address] SCREENING DEXA SCAN [facility] CLINICAL INFORMATION: POSTMENOPAUSAL COMPARISON: None. FINDINGS: The L1-L4 bone mineral density measures 0.857 g/cm2. This corresponds to a T score score of -2.7 and Z score of -1.3. Left femoral neck bone mineral density measures 0.757 g/cm2. This corresponds to a T score of -2.0 an d Z score of -0.7. Right femoral neck bone mineral density measures 0.745 g/cm2. This corresponds to a T score -2.1of an d Z score of -0.8. Mean femoral neck bone mineral density measures 0.751 g/cm2. This corresponds to a T score of -2.0 an d Z score of -0.7. XR/XR DEXA axial skeleton* [id number] IMPRESSION: Osteoporosis lumbar spine. Osteopenia femoral necks. Patient's FRAX calculated 10 year probability for major osteoporotic fracture i s 13.2 % and osteoporotic hip fracture is 2.9%.
== END 2022-07-30 13:53 | disposition home or self-care (01) ==
LOC: RAD 13:52
PROVIDERS: PCP Physician Assistant; Visit Provider Physician Assistant
DX: Z78.0 Asymptomatic menopausal state (principal); M81.0 Age-related osteoporosis without current pathological fracture; M85.88 Other specified disorders of bone density and structure, other site
CPT/HCPCS: 77080

== ENCOUNTER → 2023-04-23 10:42 | Outpatient (BNVA) | payer MEDICARE, SELFPAY | PROVIDERS: PCP Physician Assistant; Visit Provider Dermatology | DX: N76.1 Subacute and chronic vaginitis (principal); L24.2 Irritant contact dermatitis due to solvents; B37.31 Acute candidiasis of vulva and vagina | CPT/HCPCS: 99214 ==

== ENCOUNTER → 2023-05-28 14:35 | Outpatient (BNVA) | payer MEDICARE, SELFPAY | PROVIDERS: PCP Physician Assistant; Visit Provider Dermatology | DX: N76.1 Subacute and chronic vaginitis (principal); L90.0 Lichen sclerosus et atrophicus; L24.2 Irritant contact dermatitis due to solvents | CPT/HCPCS: 99214 ==

== ENCOUNTER → 2023-08-06 13:41 | Outpatient (BNVA) | payer MEDICARE, SELFPAY | PROVIDERS: PCP Physician Assistant; Referring Provider Physician Assistant; Visit Provider Internal Medicine Pulmonary Disease | DX: R05.3 Chronic cough (principal); J45.991 Cough variant asthma | CPT/HCPCS: 99213 ==

== ENCOUNTER 2023-09-04 12:01 | Outpatient (CLI) | payer MEDICARE, SELFPAY ==
--- NOTE | 2023-09-04 13:47 | MM_ITS ---
WS: [email or web address] BILATERAL 3D TOMOSYNTHESIS DIGITAL SCREENING MAMMOGRAPHY WITH CAD CLINICAL INFORMATION: SCREENING HISTORY: Screening mammogram. No current complaints. COMPARISON: 2021 TECHNIQUE: Bilateral CC and MLO views. FINDINGS: Scattered fibroglandular densities bilaterally. No suspicious focal mass, asymmetry, calcifications, or architectural distortion. No evidence of malignancy. Vascular calcifications. A few benign calcifications. IMPRESSION: MM/[place] [id number] BI-RADS: 2-Benign FOLLOW UP: 1 Year Follow-up Recommend return to annual screening mammography.
== END 2023-09-04 12:02 | disposition home or self-care (01) ==
LOC: RAD 12:01
PROVIDERS: PCP Physician Assistant; Visit Provider Physician Assistant
DX: Z12.31 Encounter for screening mammogram for malignant neoplasm of breast (principal); R92.323 Mammographic fibroglandular density, bilateral breasts; R92.1 Mammographic calcification found on diagnostic imaging of breast
CPT/HCPCS: 77063; 77067

== ENCOUNTER 2023-09-04 12:01 | Outpatient (CLI) | payer MEDICARE, SELFPAY ==
--- NOTE | 2023-09-04 12:09 | MR_ITS ---
WS: [id number] MRI RIGHT KNEE NONCONTRAST TECHNIQUE: Axial PD, coronal PD fat sat, coronal PD, sagittal PD, and sagittal PD fat-sat images obta ined. CLINICAL INFORMATION: R KNEE PAIN COMPARISON: None. FINDINGS: Distal quadriceps and patella tendons are intact. Hypertrophic patella. Moderate to advanced tricompa rtmental arthritis. Normal ACL and PCL. Tiny popliteal cyst. Lobulated venous varices in the poplitea l fossa. Chronic thinning of the medial and lateral meniscus. Chronic appearing tear of the lateral meniscus w ith blunting of the meniscal root. Intrasubstance signal abnormality posterior horn lateral meniscus. Joint space narrowing worse in the lateral joint compartment. Grade 3-4 chondromalacia medial and la teral joint compartments. Moderate chondromalacia patella. Normal medial and lateral patellar retinaculum. Slight lateral sublu xation of the patella may be due to positioning. No dislocation. Medial and lateral collateral ligame nts are intact. IMPRESSION: 1. Normal ACL and PCL. 2. Prominent varicosities in the popliteal fossa. 3. Chronic appearing tear involving the lateral meniscus with blunting of the meniscal root. Intrasu bstance signal abnormality involving the posterior horn lateral meniscus. 4. Tricompartmental arthritis with joint space narrowing worse in the lateral joint compartment. Gra de 3-4 chondromalacia. 5. Grade III chondromalacia patella. Small suprapatellar effusion. 6. Tiny lobulated popliteal cyst. Outbridge grading: grade IV: full-thickness cartilage loss with underlying bone reactive changes
== END 2023-09-04 12:02 | disposition home or self-care (01) ==
PROVIDERS: PCP Physician Assistant; Visit Provider Physician Assistant
DX: S83.281A Other tear of lateral meniscus, current injury, right knee, initial encounter (principal); X58.XXXA Exposure to other specified factors, initial encounter; I86.8 Varicose veins of other specified sites; M17.11 Unilateral primary osteoarthritis, right knee; M22.41 Chondromalacia patellae, right knee; M71.21 Synovial cyst of popliteal space [Baker], right knee
CPT/HCPCS: 73721

== ENCOUNTER → 2023-09-14 14:49 | Outpatient (BNVA) | payer MEDICARE, SELFPAY | PROVIDERS: PCP Physician Assistant; Referring Provider Physician Assistant; Visit Provider Specialist | DX: M17.11 Unilateral primary osteoarthritis, right knee; M23.203 Derangement of unspecified medial meniscus due to old tear or injury, right knee; M23.204 Derangement of unspecified medial meniscus due to old tear or injury, left knee; M25.561 Pain in right knee; Z01.818 Encounter for other preprocedural examination | CPT/HCPCS: 36415; 73560; 73565; 80053; 81003; 85025; 99204 ==

== ENCOUNTER 2023-10-08 15:53 | Outpatient (CLI) | payer OTHER, SELFPAY ==
--- NOTE | 2023-10-08 16:00 | CT_ITS ---
WS: [id number] CT CHEST CT-HIGH RESOLUTION, NONCONTRAST. HISTORY: Interstitial lung disease. Technique: High-resolution chest CT is performed in inspiration, expiration, supine and prone positio rigoberto. All CT scans at [facility] use at least one of these dose optimization techniques: automated exposure control; mA and/or kV adjustment per patient size (includes targeted exams where dose is mat ched to clinical indication); or iterative reconstruction. DLP: 964.46 mGy.cm COMPARISON: 03/11/2022 Findings: Previously described reticular nodular opacifications noted bilaterally have nearly complet aminah resolved. There is a very mild reticulonodular opacification in the RIGHT upper lobe and the RIGH T middle lobe along with mild pleural thickening and nodularity involving the major fissure. Small am ount of reticular nodular thickening at the superior segment RIGHT lower lobe. There is additional ve ry minimal nodularity along the LEFT inferior major fissure. There is no honeycombing or traction bro nchiectasis at the lung bases. There is mild traction bronchiectasis noted at the lingula and RIGHT middle lobe. Very mild atheroscl erosis aorta. Normal sized pulmonary artery. Normal sized heart. Moderate sized hiatal hernia. No enl arged mediastinal or hilar lymph nodes are identified. Prior cholecystectomy. No adrenal mass. Impression: 1. Significant improvement in the previously described reticular nodular infiltrates since 03/11/2022 . 2. Mild residual tree-in-bud air type disease noted in the RIGHT upper lobe, RIGHT middle lobe, supe rior segment RIGHT lower lobe. Additional nodularity along the pleural fissures. 3. Mild bronchiectasis at the lingula and RIGHT middle lobe. 4. No honeycombing or traction bronchiectasis at the lung bases. 5. Consider prior infection with bacterial or fungal pneumonia/MAC. Less likely UIP due to the distr ibution. There is some involvement of the bronchovascular bundles suggesting sarcoidosis but there is no central adenopathy. 6. Chronic emphysema. 7. No adenopathy. 8. Prior cholecystectomy. 9. Hiatal hernia.
== END 2023-10-08 15:54 | disposition home or self-care (01) ==
LOC: RAD 15:53
PROVIDERS: PCP Physician Assistant; Visit Provider Internal Medicine Pulmonary Disease
DX: J45.991 Cough variant asthma (principal); J47.9 Bronchiectasis, uncomplicated; J43.9 Emphysema, unspecified
CPT/HCPCS: 71250

== ENCOUNTER 2024-03-22 05:51 | Day surgery (SDC) | payer MEDICARE, SELFPAY ==
[2024-03-22] VITALS (15 sets, daily range): BP systolic 109–168; BP diastolic 65–100; PULSE 64–83; RESP 12–18; TEMP 36.1–36.4; O2SAT 90–100; BMI 26.6
[2024-03-22] MEDS: acetaminophen 1,000 MG/100 ML PIGGYBACK 400 MG IV (06:42)
[2024-03-22] MEDS: gabapentin 300 mg Capsule PO (06:42)
[2024-03-22] MEDS: sodium chloride 0.9% 1,000 ML 30 ML IV (06:44)
--- NOTE | 2024-03-22 06:55 | W.PM.OPSUD ---
Surgery/Procedure H&P Update DATE OF PROCEDURE: March 22, 2024 DATE H&P PERFORMED: 03/15/24 H&P UPDATE INFORMATION: I have reviewed H&P completed within last 30 days, I have examined patient prior to procedure, No changes to prior documentation and H&P is in [facility] EMR on date indicated PRIMARY INDICATION FOR PROCEDURE: MRI IMPRESSION: 1. Normal ACL and PCL. 2. Prominent varicosities in the popliteal fossa. 3. Chronic appearing tear involving the lateral meniscus with blunting of the meniscal root. Intrasubstance signal abnormality involving the posterior horn lateral meniscus. 4. Tricompartmental arthritis with joint space narrowing worse in the lateral joint compartment. Grade 3-4 chondromalacia. 5. Grade III chondromalacia patella. Small suprapatellar effusion. 6. Tiny lobulated popliteal cyst. PLANNED PROCEDURE: Operation Date: 03/22/24 07:00 Proposed Procedures p Knee Diagnostic and Knee Arthroscopy w/partial Lateral Menisectomy(Right) - Latanya Lozano MD s Debridement Lower Extremity right Knee(Right) - Latanya Lozano MD Related Problem List Diagnoses (1) Osteoarthritis of right knee: Qualifiers: Osteoarthritis type: primary Qualified Code(s): M17.11 - Unilateral primary osteoarthritis, right knee (2) Tear of lateral meniscus of right knee:
[2024-03-22] MEDS: ceFAZolin 2,000 mg SDV 2000 MG IVP (07:02)
--- NOTE | 2024-03-22 07:06 | ANES.PREANE2 ---
Pre-Anesthetic Assessment Height/Weight: Height 1.68 m Weight 74.843 kg Temp Pulse Resp BP Pulse Ox O2 Del Method 96.9 F L 71 18 168/100 96 Room Air 03/22/24 06:07 03/22/24 06:07 03/22/24 06:07 03/22/24 06:07 03/22/24 06:07 03/22/24 06:16 Operation Date: 03/22/24 07:00 Proposed Procedures p Knee Diagnostic and Knee Arthroscopy w/partial Lateral Menisectomy(Right) - Latanya Lozano MD s Debridement Lower Extremity right Knee(Right) - Latanya Lozano MD Familial anesthetic complications: none Was Beta Amanda taken within 24 hours: N/A Was Clonidine taken within 24 hours: N/A Last intake: Intake Last Liquid Date 03/21/24 Last Liquid Time 22:30 Last Solid Date 03/21/24 Last Solid Time 19:30 Social No alcohol and No tobacco Exam alert, oriented x 3, clear to auscultation bilaterally and regular rate & rhythm Airway Submandibular: within normal limits Cervical ROM: within normal limits Mallampati: Class II Dentition: full Pulmonary Bronchiectasis GI Gastroesophageal Reflux Disease Metabolic Thyroid Disease [facility] Osteoarthritis/DJD Anesthetic Plan ASA status: 2 Anesthesia: General Medications/Allergies Home Medications Medication Instructions Recorded Confirmed Last Taken Type levothyroxine 125 mcg tablet 125 mcg PO DAILY 03/10/22 03/21/24 03/21/24 History trazodone 150 mg tablet 150 mg PO BEDTIME 03/10/22 03/21/24 03/20/24 History betamethasone, augmented 0.05 % 1 applic topical BID PRN skin 06/23/23 03/21/24 Unknown Rx topical ointment irritation #50 grams azelastine 137 mcg (0.1 %) nasal 2 spray intranasal BID 08/06/23 03/21/24 03/22/24 History spray fluticasone propionate 50 1 spray intranasal DAILY PRN 08/06/23 03/22/24 03/22/24 History mcg/actuation nasal allergies spray,suspension latanoprost 0.005 % eye drops 1 drp ophthalmic (eye) DAILY 08/06/23 03/21/24 03/22/24 History budesonide-formoterol HFA 160 1 inh inhalation DAILY 09/28/23 03/21/24 03/21/24 History mcg-4.5 mcg/actuation aerosol inhaler (Symbicort) dorzolamide 22.3 mg-timolol 6.8 1 drp ophthalmic (eye) BID 09/28/23 03/21/24 03/21/24 History mg/mL eye drops omeprazole 20 mg tablet,delayed 20 mg PO DAILY 09/28/23 03/21/24 03/21/24 History release clobetasol 0.05 % topical cream 1 applic topical DAILY PRN Skin 03/21/24 03/21/24 03/21/24 History Irritation Allergies Allergy/AdvReac Type Severity Reaction Status Date / Time ciprofloxacin Allergy ALGY-Anaphy Verified 03/21/24 10:42 laxis Current Medications Generic Name Dose Route Start Last Admin Trade Name Freq PRN Reason Stop Dose Admin Sodium Chloride 1,000 mls @ 30 mls/hr 03/22/24 06:00 03/22/24 06:44 Sodium Chloride 0.9% IV 03/23/24 05:59 30 mls/hr .Q24H IRVIN Administration PFSH Anesthesia Medical History History of ectopic No pertinent past medical history neghx: htn,dm,dvt/pe PCP: Intestinal metaplasia of stomach Hypothyroidism Surgical History History of [place] fundoplication Hx of cholecystectomy Hx of appendectomy H/O: hysterectomy RICKEY, unilateral oophorectomy performed in [place] for AUB; benign findings. 1 ovary spared. Family History Mother Lung cancer Hypertension Grandmother Stroke maternal Heart disease Brother Hypertension Sister Hypertension Thyroid disease Father Prostate cancer Grandfather Prostate cancer Paternal Denies family history of Colon cancer Ovarian cancer Diabetes Hyperlipidemia Breast cancer Uterine cancer Social History Smoking and tobacco/nicotine status: never used tobacco/nicotine Quit status (tobacco/nicotine): has quit using Year quit tobacco: 1974 Former quit date comment: 1 ppd X 4 years Data Anesthesia Cardiac Studies: No Data to Display
[2024-03-22] MEDS: morphine 4 mg/mL SDV 1 mL 8 MG XX (07:41)
[2024-03-22] MEDS: ROPivacaine 0.5% SDV 30 mL 150 MG INJECTION (07:42)
--- NOTE | 2024-03-22 08:30 | P.OP_ITS ---
Operative Report Date of procedure: March 22, 2024 Pre-op diagnosis: Right lateral meniscal tear with osteoarthritis Post-op diagnosis: Right knee medial and lateral meniscal tears with degenerative osteoarthritis Post-op findings: Severe degenerative osteoarthritic changes with maceration and tearing of both the medial and lateral menisci. Procedure done: Right arthroscopic knee surgery with partial medial and lateral meniscectomies, chondroplasties of the medial femoral condyle, lateral tibial plateau, and patella. Implants: None Specimens removed/disposition: Soft tissue, disposed of Surgeon: Latanya Lozano MD [employer] Supervisor: None Anesthesia: General (Per LMA, ASA 3) Estimated blood loss (mL): 5 Tourniquet time (min): 31 (At 250 mmHg) IV fluids (mL): 900 Urine output (mL): 0 Complications: None Findings: Severe degenerative osteoarthritic changes primarily in the medial condyle, plateau. Large macerated lateral meniscal tear as well as medial meniscal tear. Condition: stable Disposition: PACU (Then return to same-day surgery for discharge to home) Brief History: This 73-year-old woman presented to the office with complaints of right knee pain. Patient had a positive Reza's and a specific event causing her to have increased pain. Rather than proceeding with total knee arthroplasty based on the diagnosis of osteoarthritis, the patient wished to try arthroscopic interventions as these have been successful for her in the past. While she was in the office, questions were answered and consents were signed. Procedure: Patient was brought to the operating theater and after undergoing adequate general anesthesia per LMA, ASA 3, the patient's right lower extremity was prepped and draped in usual fashion utilizing DuraPrep. A tourniquet was placed high on the leg prior to prepping and draping. The tourniquet was elevated prior to commencement of the surgical procedure to 250 mmHg. Total tourniquet time was 31 minutes. Elevation followed prepping and exsanguination. Prior to commencement of the surgical procedure, a surgical pause was performed. At the time of the surgical pause, we identified the site and side of surgery. We also confirmed the patient's identity and appropriate and timely administration of preoperative antibiotics, Ancef 2 g. Preoperative surgical markings were also visualized at this time. Standard arthroscopic portals were utilized including superolateral, inferomedial, and inferolateral portals. The examination commenced in the suprapatellar pouch area where the patient was noted to have chondromalacia of the significant degree on the undersurface of the patella. The arthroscope was then passed in the medial compartment where there was noted to be complex tearing of the medial meniscus as well as significant synovitis anteriorly limiting visualization. The arthroscope was then passed across the notch area where anterior cruciate ligament was visualized and found to be intact, but thinned, and there was significant synovitis from this area. The scope was passed into the lateral compartment with the knee in a [id number] position. Lateral meniscus was noted to have complex tearing involving the anterior, mid, and posterior compartments to the meniscus. An arthroscopic shaver as well as intra-articular heat wand was used to debride this meniscus. Additionally, chondroplasty of the lateral tibial plateau was performed using the shaver, basket forceps, and heat wand. Once lateral meniscus had been thus prepared it was palpated and found to be intact and not displaceable into the knee joint. Scope was then returned to the medial compartment where medial meniscectomy was performed the termination of the intra-articular shaver and heat wand. The meniscus was palpated and found to be not displaceable into the knee joint. Chondroplasty was performed of the medial femoral condyle. The arthroscope was then returned to the patellofemoral joint where a chondroplasty was performed of the undersurface of the patella. This chondroplasty involved use of the intra- articular shaver as well as the heat wand. Once the patella had been addressed, the scope was passed back through the knee compartments to evaluate for other abnormalities. Finding none, attention was directed to closure. The knee was copiously irrigated and suctioned dry. Following this, each portal was closed with a simple suture followed by Dermabond, Steri-Strips, and OpSite on the 2 lower incisions. The upper lateral incision was closed with a simple suture and Steri-Strip without Dermabond. ABD was placed for absorption as there was distention of the soft tissues in the area possibly due to the patient's multiple prior scopes. Additionally, the knee was injected with 20 mL of half percent ropivacaine and 8 mg of morphine. Additional 10 mL of ropivacaine was placed about the portals. Sterile dressing was placed consisting of the OpSite's and ABD as outlined above followed by soft roll and an Daniel wrap. Patient was returned to Recovery Room in satisfactory condition where she will be discharged home to follow-up with me in the office as scheduled. There were no complications and no specimens. Related Problem List Diagnoses (1) Tear of lateral meniscus of right knee: (2) Osteoarthritis of right knee: (3) Degenerative tear of medial meniscus of right knee:
[2024-03-22] MEDS: fentaNYL 50 mcg/mL INJ 2mL IVP (08:40)
[2024-03-22] MEDS: ondansetron 2 mg/ML SDV 2 mL 4 MG IVP ×2 (08:41→09:57)
[2024-03-22] MEDS: meperidine 50 mg/mL INJ 12.5 MG IVP (08:52)
[2024-03-22] MEDS: HYDROcodone-acetaminophen 5-325 mg Tablet 1 TAB PO (09:55)
--- NOTE | 2024-03-22 12:58 | ANE.PACU2 ---
Inpatient post-anesthesia follow up: Airway intact: Yes Vital signs: Temperature 97.6 F Pulse Rate 77 Respiratory Rate 16 Blood Pressure 141/78 Pulse Oximetry 95 Oxygen Delivery Me thod Room Air Oxygen Flow Rate 3 Fraction of Inspir ed Oxygen Hydration adequate: Yes Nausea and vomiting: No Pain level: 3 Mental status: Baseline
== END 2024-03-22 10:25 | disposition home or self-care (01) ==
PROVIDERS: PCP Physician Assistant; Visit Provider Specialist
PROC: (CPT 29870; principal; 2024-03-22 07:00)
PROC: (CPT 29880; 2024-03-22 07:00)
PROC: (CPT 29880; 2024-03-22 07:00)
DX: M17.11 Unilateral primary osteoarthritis, right knee (principal); S83.281A Other tear of lateral meniscus, current injury, right knee, initial encounter; S83.241A Other tear of medial meniscus, current injury, right knee, initial encounter; X58.XXXA Exposure to other specified factors, initial encounter; K21.9 Gastro-esophageal reflux disease without esophagitis; E03.9 Hypothyroidism, unspecified
CPT/HCPCS: 29880; J0131; J0690; J1100; J1170; J2175; J2250; J2270; J2405; J2704; J2795; J3010; J7030

== ENCOUNTER 2024-03-23 17:47 | Emergency (ER) | payer MEDICARE, SELFPAY ==
[2024-03-23 18:10] VITALS: BP 134/84; PULSE 65; RESP 18; TEMP 36.7; O2SAT 96
--- NOTE | 2024-03-23 18:24 | XRR_ITS ---
PROCEDURE INFORMATION: Exam: XR Abdomen Exam date and time: 03/23/2024 6:31 PM Age: 73 years old Clinical indication: Constipation; Prior surgery; Surgery date: 6+ months; Surgery type: Hysterectomy, gb removal, appendectomy. TECHNIQUE: Imaging protocol: Radiologic exam of the abdomen. Views: Frontal supine view of the abdomen. 1 View. COMPARISON: CT abdomen pelvis w con* [id number] 03/10/2022 5:21 PM FINDINGS: Gastrointestinal tract: Mild gaseous distension of multiple loops of bowel in the left upper quadrant, within normal limits. No evidence of obstruction. Moderate stool burden. Intraperitoneal space: Right upper quadrant clips. Bones/joints: Unremarkable. XR/XR KUB [id number] IMPRESSION: Moderate stool burden. Mild gaseous distension of multiple loops of bowel in the left upper quadrant, within normal limits. No evidence of obstruction.
--- NOTE | 2024-03-23 18:25 | ED_ITS ---
HPI - Female Genitourinary 2 General: Chief complaint: Urogenital-Female Stated complaint: Unable to pee post surgery 03/22 Time Seen by Provider: 03/23/24 18:23 History of Present Illness: 73-year-old female comes in today with d ifficulty urinating after knee replacement surgery yesterday. Patient appears nontoxic. Patient appears in no acute distress. Patient reports she is only able to pass small amounts of urine. Review of Systems 2 General: Reports: 10 or more systems reviewed and unremarkable except in HPI and below : Reports: difficulty voiding PFSH ED 2 PFSH: Medical History History of ectopic No pertinent past medical history neghx: htn,dm,dvt/pe PCP: Intestinal metaplasia of stomach Hypothyroidism Surgical History History of [place] fundoplication Hx of cholecystectomy Hx of appendectomy H/O: hysterectomy RICKEY, unilateral oophorectomy performed in [place] for AUB; benign findings. 1 ovary spared. Family History Mother Lung cancer Hypertension Grandmother Stroke maternal Heart disease Brother Hypertension Sister Hypertension Thyroid disease Father Prostate cancer Grandfather Prostate cancer Paternal Denies family history of Colon cancer Ovarian cancer Diabetes Hyperlipidemia Breast cancer Uterine cancer Social History Smoking and tobacco/nicotine status: never used tobacco/nicotine Quit status (tobacco/nicotine): has quit using Year quit tobacco: 1974 Former quit date comment: 1 ppd X 4 years Physical Exam 2 Const: COMMON NORMALS: alert HENMT: COMMON NORMALS: normocephalic HEAD & SCALP: normocephalic Neck/C-Spine: COMMON NORMALS: full ROM Resp: COMMON NORMALS: normal respiratory effort and clear to auscultation bilaterally AUSCULTATION: clear to auscultation bilaterally Cardio: COMMON NORMALS: regular rate and regular rhythm RATE: regular rate RHYTHM: regular rhythm GI: COMMON NORMALS: Soft to palpation and non-tender PALPATION: Yes Soft to palpation : COMMON NORMALS: Yes no CVA tenderness BLADDER/KIDNEY EXAM: Yes no CVA tenderness Back/Pelvis: COMMON NORMALS: no CVA tenderness Extremity: COMMON NORMALS: normal to inspection NARRATIVE EXTREMITY EXAM: Postsurgical right lower extremity no severe swelling Neuro: SENSORIUM/ORIENTATION: Yes alert Skin: COMMON NORMALS: turgor normal GENERAL SKIN EXAM: turgor normal Course 2 Vital Signs: Vital signs: Vital Signs Temperature 98.1 F 03/23/24 18:10 Pulse Rate 65 03/23/24 18:10 Respiratory Rate 18 03/23/24 18:10 Blood Pressure 134/84 03/23/24 18:10 Pulse Oximetry 96 03/23/24 18:10 Oxygen Delivery Me thod Room Air 03/23/24 18:10 MDM - Female Medical Decision Making 73-year-old female comes in today for complaints of difficulty urinating status post surgery. Patient reports no fever. Patient appears in no pain. Patient reports getting around well status post surgery 24 hours. Vital signs are normal. Differential diagnosis acute urinary retention, cystitis, constipation, JANET. CBC CMP was unremarkable. KUB was unremarkable. 2034, patient requested to go home. We are awaiting lab results of urinalysis. Patient will contact for results with primary care or we will notify if there is any abnormalities. Lab Data 03/23/24 18:42 03/23/24 18:42 Radiology Impressions KUB X-Ray 03/23/24 18:24 IMPRESSION: Moderate stool burden. Mild gaseous distension of multiple loops of bowel in the left upper quadrant, within normal limits. No evidence of obstruction. Laboratory Results WBC 6.73 10^3/uL (3.29-11.43) 03/23/24 18:42 RBC 3.69 10^6/uL (3.85-5.65) L 03/23/24 18:42 Hgb 12.30 g/dL (11.27-16.99) 03/23/24 18:42 Hct 38.4 % (36-47) 03/23/24 18:42 MCV 104.1 fl (85-98) H 03/23/24 18:42 MCH 33.3 pg (27-33) H 03/23/24 18:42 MCHC 32.0 g/dL (30-55) 03/23/24 18:42 RDW 14.1 % (12.1-15.1) 03/23/24 18:42 Plt Count 154 10^3/cmm (157-399) L 03/23/24 18:42 MPV 10.3 fL (7.4-10.4) 03/23/24 18:42 Neut % (Auto) 45.7 % 03/23/24 18:42 Lymph % (Auto) 42.6 % 03/23/24 18:42 Gonzales % (Auto) 7.6 % 03/23/24 18:42 Eos % (Auto) 3.4 % 03/23/24 18:42 Baso % (Auto) 0.6 % 03/23/24 18:42 Neut # (Auto) 3.07 10^3/uL (1.8-7.7) 03/23/24 18:42 Lymph # (Auto) 2.9 10^3/uL (0.8-4.8) 03/23/24 18:42 Gonzales # (Auto) 0.5 10^3/uL (0.2-0.9) 03/23/24 18:42 Eos # (Auto) 0.2 10^3/uL (0.0-0.8) 03/23/24 18:42 Baso # (Auto) 0.0 10^3/uL (0.0-0.1) 03/23/24 18:42 Nucleated RBC % (auto) 0 % 03/23/24 18:42 Nucleated RBCs # 0.0 /100WBC 03/23/24 18:42 Sodium 141 mmol/L (136-145) 03/23/24 18:42 Potassium 3.8 mmol/L (3.5-5.1) 03/23/24 18:42 Chloride 102 mmol/L (98-107) 03/23/24 18:42 Carbon Dioxide 33 mmol/L (22-29) H 03/23/24 18:42 Anion Gap 9.8 (5-19) 03/23/24 18:42 BUN 9 mg/dL (8-23) 03/23/24 18:42 Creatinine 0.8 mg/dL (0.5-0.9) 03/23/24 18:42 GFR Calculation Not Reportable 03/23/24 18:42 Glucose 90 mg/dL (65-115) 03/23/24 18:42 Calculated Osmolality 290 mOsm/kg (285-295) 03/23/24 18:42 Calcium 8.5 mg/dL (8.5-10.5) 03/23/24 18:42 Total Bilirubin 0.4 mg/dL (0.15-1.2) 03/23/24 18:42 AST 17 U/L (0-32) 03/23/24 18:42 ALT 12 U/L (0-33) 03/23/24 18:42 Alkaline Phosphatase 82 U/L (35-105) 03/23/24 18:42 Total Protein 6.4 g/dL (6.6-8.7) L 03/23/24 18:42 Albumin 3.7 g/dL (3.5-5.2) 03/23/24 18:42 Globulin 2.7 g/dL (1.3-4.6) 03/23/24 18:42 Amorphous Sediment Not Reportable 03/23/24 20:15 All radiology interpretation(s) finalized by discharge Discharge Plan Discharge Patient Disposition: Home Clinical Impression: Dehydration Condition: Stable Prescriptions: No Action azelastine 137 mcg (0.1 %) aerosol,spray 2 spray intranasal BID Rx Instructions: administer into each nostril fluticasone propionate 50 mcg/actuation spray,suspension 1 spray intranasal DAILY PRN (Reason: allergies) Rx Instructions: administer into each nostril latanoprost 0.005 % drops 1 drp ophthalmic (eye) DAILY Rx Instructions: to both eyes betamethasone, augmented 0.05 % ointment 1 applic topical BID PRN (Reason: skin irritation) Qty: 50 0RF Rx Instructions: apply a thin film omeprazole 20 mg tablet,delayed release (DR/EC) 20 mg PO DAILY dorzolamide-timolol 22.3-6.8 mg/mL drops 1 drp ophthalmic (eye) BID Rx Instructions: to both eyes budesonide-formoterol [Symbicort] 160-4.5 mcg/actuation HFA aerosol inhaler 1 inh inhalation DAILY trazodone 150 mg Tablet 150 mg PO BEDTIME levothyroxine 125 mcg Tablet 125 mcg PO DAILY clobetasol 0.05 % Cream 1 applic TOPICAL DAILY PRN (Reason: Skin Irritation) hydrocodone-acetaminophen 5-325 mg tablet 1 tab PO Q6H PRN (Reason: pain) Qty: 20 0RF ondansetron 4 mg tablet,disintegrating 4 mg PO Q8H PRN (Reason: nausea and vomiting) Qty: 20 0RF Discharge Orders: Discharge ED (Routine); Ordered 03/23/24 Ordered By: Elie Buckley Referrals: Denisse Garrison PA [Primary Care Provider] - Discharge Diet: Usual diet Discharge Activity: Increase activity as tolerated Patient Instructions: Dehydration (ED) Activity Restrictions/Additional Instructions: Continue with routine care. Drink plenty water and fluids. Follow-up with primary care for further instructions. Return to ED for worsening symptoms such as inability to hold fluids down, severe pain, or new concerns. Coding Level of Care Code ED Nurses' Registry Director for Lona Valdovinos
[2024-03-23 18:59] LABS: Basophils % 0.6 %; Eosinophils # 0.2 10^3/uL (0.0-0.8); Eosinophils % 3.4 %; Hematocrit 38.4 % (36-47); Lymphocytes # 2.9 10^3/uL (0.8-4.8); Lymphocytes % 42.6 %; Mean Corpuscular Hemoglobin 33.3 pg (27-33); Mean Corpuscular Volume 104.1 fl (85-98); Mean Platelet Volume 10.3 fL (7.4-10.4); Monocytes # 0.5 10^3/uL (0.2-0.9); Monocytes % 7.6 %; Neutrophils # 3.07 10^3/uL (1.8-7.7); Neutrophils % 45.7 %; Nucleated Red Blood Cells % 0 %; Platelet Count 154 10^3/cmm (157-399); Red Blood Count 3.69 10^6/uL (3.85-5.65); Red Cell Distribution Width 14.1 % (12.1-15.1); White Blood Count 6.73 10^3/uL (3.29-11.43)
[2024-03-23 19:07] LABS: Alanine Aminotransferase 12 U/L (0-33); Albumin Level 3.7 g/dL (3.5-5.2); Alkaline Phosphatase 82 U/L (35-105); Anion Gap 9.8 (5-19); Aspartate Amino Transferase 17 U/L (0-32); Blood Urea Nitrogen 9 mg/dL (8-23); Calcium 8.5 mg/dL (8.5-10.5); Carbon Dioxide 33 mmol/L (22-29); Chloride 102 mmol/L (98-107); Creatinine Clr Calc Pharmacy 65.7447; Globulin 2.7 g/dL (1.3-4.6); Glucose 90 mg/dL (65-115); Osmolality Calculated 290 mOsm/kg (285-295); Potassium 3.8 mmol/L (3.5-5.1); Sodium 141 mmol/L (136-145); Total Bilirubin 0.4 mg/dL (0.15-1.2); Total Protein 6.4 g/dL (6.6-8.7)
--- NOTE | 2024-03-23 19:16 | PC.NURSE ---
IV fluids being held at this time per ELISA angela
[2024-03-23 19:45] VITALS: BP 131/78; PULSE 59; RESP 17; O2SAT 94
[2024-03-23 20:15] VITALS: BP 140/81; PULSE 57; RESP 15; O2SAT 93
[2024-03-23 20:18] LABS: Charge for UA Resulting for Rev
[2024-03-23 20:29] LABS: Bilirubin Urine Negative (Negative); Blood Urine Negative (Negative); Glucose Urine UA Negative (Normal); Ketones Urine Negative (Negative); Leukocyte Esterase Urine Trace (Negative); Nitrate Urine Negative (Negative); Protein Urine Negative (Negative); Specific Gravity, Urine 1.013 (1.005-1.030); Urine Appearance Clear (CLEAR); Urine Color Yellow (Yellow); pH Urine 8.5 (5-7)
--- NOTE | 2024-03-23 20:30 | PC.NURSE ---
DUE TO PT BEING ABLE TO PROVIDE UA, PROVIDER IS OK WITH NOT PLACING HARPER CATHETER.
[2024-03-23 20:34] LABS: Bacteria Urine None Seen /hpf; Hyaline Casts Urine 0-4 /lpf; RBC Urine 0-2 /hpf (0-2); Squamous Epithelial Cell Urine 0-5 /hpf (0-5)
--- NOTE | 2024-03-23 20:38 | PC.NURSE ---
PT EXPRESSED DESIRE TO GO HOME DUE TO THEM NOT BEING ABLE TO DRIVE IN THE DARK. PROVIDER AGREED THAT URINE RESULT CAN BE CALLED TO THEM IF ANYTHING IS WRONG. PT WILL BE DISCHARGED TO HOME.
--- NOTE | 2024-03-23 20:48 | PC.NURSE ---
PT DECLINED TO TAKE DISCHARGE PAPERWORK. SHE STATED IT'S JUST ONE MORE THING I'LL HAVE TO SHRED.
== END 2024-03-23 20:48 | disposition home or self-care (01) ==
PROVIDERS: Emergency Provider Nurse Practitioner Family; PCP Physician Assistant
DX: E86.0 Dehydration (principal); Z87.891 Personal history of nicotine dependence
CPT/HCPCS: 36415; 74018; 80053; 81003; 81015; 85025; 99284

== ENCOUNTER 2024-03-25 00:21 | Emergency (ER) | payer MEDICARE, SELFPAY ==
[2024-03-25 00:23] VITALS: BP 169/78; PULSE 93; RESP 18; TEMP 36.3; O2SAT 96
--- NOTE | 2024-03-25 00:23 | ECG_ITS ---
[facility] Test Date: 2024-03-25 Pat Name: Mena Cage Department: Room: Gender: Female Tufter: : 1950 Requested By: Jaren Gama Order Number: [id number] Roberts MD: Winston Borja M.D. Measurements Intervals [place] Rate: 93 P: 45 SC: 186 QRS: -7 QRSD: 78 T: 32 QT: 338 QTc: 421 Interpretive Statements SINUS RHYTHM POSSIBLE LEFT ATRIAL ENLARGEMENT [-0.1mV P-WAVE IN V1/V2] LOW QRS VOLTAGE IN PRECORDIAL LEADS [QRS DEFLECTION < 1.0 mV IN CHEST LEADS] POSSIBLE ANTERIOR MYOCARDIAL INFARCTION , PROBABLY OLD [30 ms Q WAVE IN V3/V4, OR R < 0.2 mV IN V4] Compared to ECG 03/10/2022 22:36:28 Myocardial infarct finding now present Sinus bradycardia no longer present Electronically Signed On 03-25-2024 15:30:54 CDT by Winston Borja M.D. [email or web address]
[2024-03-25 01:11] VITALS: BP 162/118; PULSE 92; O2SAT 93
--- NOTE | 2024-03-25 01:23 | XRR_ITS ---
PROCEDURE INFORMATION: Exam: XR Abdomen Exam date and time: 03/25/2024 1:50 AM Age: 73 years old Clinical indication: Abdominal tenderness and constipation; Abdominal pain; Epigastric; Prior surgery; Surgery date: 6+ months; Surgery type: Hysterectomy, appy, choley; Additional info: Constipation, n/v TECHNIQUE: Imaging protocol: Radiologic exam of the abdomen. Views: Frontal supine view of the abdomen. 1 View. COMPARISON: CR (ABDOMEN, ) 03/23/2024 6:31 PM FINDINGS: Gastrointestinal tract: There is a nonspecific bowel gas pattern. Organs: There has been a cholecystectomy. Vasculature: Multiple calcified phleboliths are present in the pelvis. Bones/joints: Unremarkable. XR/XR abdomen 1V* [id number] IMPRESSION: There is a nonspecific bowel gas pattern.
[2024-03-25 01:28] LABS: Basophils % 0.5 %; Eosinophils # 0.1 10^3/uL (0.0-0.8); Eosinophils % 1.2 %; Hematocrit 42.7 % (36-47); Lymphocytes # 1.1 10^3/uL (0.8-4.8); Mean Corpuscular HGB Conc 33.3 g/dL (30-55); Mean Corpuscular Volume 99.3 fl (85-98); Monocytes # 0.8 10^3/uL (0.2-0.9); Monocytes % 9.4 %; Neutrophils # 6.02 10^3/uL (1.8-7.7); Neutrophils % 74.7 %; Nucleated Red Blood Cells % 0 %; Platelet Count 186 10^3/cmm (157-399); Red Cell Distribution Width 13.5 % (12.1-15.1); White Blood Count 8.07 10^3/uL (3.29-11.43)
[2024-03-25 01:39] LABS: Alanine Aminotransferase 16 U/L (0-33); Albumin Level 3.9 g/dL (3.5-5.2); Alkaline Phosphatase 69 U/L (35-105); Anion Gap 16.8 (5-19); Aspartate Amino Transferase 22 U/L (0-32); Blood Urea Nitrogen 9 mg/dL (8-23); Calcium 8.8 mg/dL (8.5-10.5); Carbon Dioxide 23 mmol/L (22-29); Chloride 99 mmol/L (98-107); Creatinine Clr Calc Pharmacy 65.7447; Glucose 121 mg/dL (65-115); Osmolality Calculated 280 mOsm/kg (285-295); Potassium 3.8 mmol/L (3.5-5.1); Sodium 135 mmol/L (136-145); Total Bilirubin 0.9 mg/dL (0.15-1.2); Total Protein 6.9 g/dL (6.6-8.7)
[2024-03-25] MEDS: metoclopramide 5 mg/mL SDV 2 mL 10 MG IVP (01:39)
[2024-03-25] MEDS: ketorolac 30 mg/mL INJ IVP (01:40)
[2024-03-25] MEDS: sodium chloride 0.9% 1,000 ML 999 ML IV (01:42)
[2024-03-25 01:46] VITALS: BP 158/90; PULSE 89; O2SAT 97
[2024-03-25 02:02] LABS: Lipase 17 U/L (13-60)
--- NOTE | 2024-03-25 02:21 | ED_ITS ---
HPI - Abdominal Pain 2 General: Chief Complaint: Abdominal Pain Stated Complaint: n/v still constipated cant keep water down Time Seen by Provider: 03/25/24 00:57 History of Present Illness: Patient presents to the ER with complaints of abdominal pain with nausea vomiting. Sharp and constant. Patient has been constipated since about the last 5 days. Her last bowel movement was a couple days before that. She had knee surgery and has been on narcotic pain medicine. She also thinks is having some urinary retention. She was seen yesterday for this refused any treatment. Review of Systems 2 General: Reports: 10 or more systems reviewed and unremarkable except in HPI and below PFSH ED 2 PFSH: Medical History History of ectopic No pertinent past medical history neghx: htn,dm,dvt/pe PCP: Intestinal metaplasia of stomach Hypothyroidism Surgical History History of Clayton fundoplication Hx of cholecystectomy Hx of appendectomy H/O: hysterectomy RICKEY, unilateral oophorectomy performed in [place] for AUB; benign findings. 1 ovary spared. Family History Mother Lung cancer Hypertension Grandmother Stroke maternal Heart disease Brother Hypertension Sister Hypertension Thyroid disease Father Prostate cancer Grandfather Prostate cancer Paternal Denies family history of Colon cancer Ovarian cancer Diabetes Hyperlipidemia Breast cancer Uterine cancer Social History Smoking and tobacco/nicotine status: never used tobacco/nicotine Quit status (tobacco/nicotine): has quit using Year quit tobacco: 1974 Former quit date comment: 1 ppd X 4 years Physical Exam 2 Const: COMMON NORMALS: no acute distress, average body habitus, patient oriented x3, no limitations, healthy appearing, alert and well nourished Neck/C-Spine: COMMON NORMALS: no JVD Chest: COMMONS NORMALS: normal inspection of the chest and normal palpation of entire chest wall Resp: COMMON NORMALS: normal respiratory effort, No retractions, No use of accessory muscles and clear to auscultation bilaterally AUSCULTATION: clear to auscultation bilaterally Cardio: COMMON NORMALS: no JVD, regular rate, regular rhythm, S1 normal heart sound present, S2 normal heart sound present, No gallops present (Cardio), No clicks present (Cardio), No murmurs present (Cardio) and No rub (Cardio) R ATE: regular rate RHYTHM: regular rhythm HEART SOUNDS: S1 normal heart sound present and S2 normal heart sound present GI: COMMON NORMALS: Normal to inspection, nondistended, normoactive bowel sounds present, Soft to palpation, No hepatosplenomegaly present and no masses; negative for non-tender (Diffusely tender) PALPATION: Yes Soft to palpation and Yes No hepatosplenomegaly present Neuro: COMMON NORMALS: patient oriented x3 SENSORIUM/ORIENTATION: Yes alert Course 2 Vital Signs: Vital signs: Vital Signs Temperature 97.3 F L 03/25/24 00:23 Pulse Rate 79 03/25/24 02:42 Respiratory Rate 18 03/25/24 00:23 Blood Pressure 155/89 03/25/24 02:42 Pulse Oximetry 96 03/25/24 02:42 MDM - Abdominal Pain Medical Decision Making Lab work was obtained included CBC CMP urinalysis lipase all of which essentially unremarkable, abdomen x-ray was obtained and compared to the one done yesterday with minimal change. Patient is refusing to take oral medicine at this time/does not want to have an accident on the way home. Patient will be discharged home with a bottle of mag citrate. Differential Diagnosis Likely abdominal pain and constipation Medical Records I reviewed the patient's medical records. Lab Data I reviewed the patient's lab results. 03/25/24 00:54 03/25/24 00:54 Labs/Radiology: Laboratory Results WBC 8.07 10^3/uL (3.29-11.43) 03/25/24 00:54 RBC 4.30 10^6/uL (3.85-5.65) 03/25/24 00:54 Hgb 14.20 g/dL (11.27-16.99) 03/25/24 00:54 Hct 42.7 % (36-47) 03/25/24 00:54 MCV 99.3 fl (85-98) H 03/25/24 00:54 MCH 33.0 pg (27-33) 03/25/24 00:54 MCHC 33.3 g/dL (30-55) 03/25/24 00:54 RDW 13.5 % (12.1-15.1) 03/25/24 00:54 Plt Count 186 10^3/cmm (157-399) 03/25/24 00:54 MPV 10.0 fL (7.4-10.4) 03/25/24 00:54 Neut % (Auto) 74.7 % 03/25/24 00:54 Lymph % (Auto) 14.0 % 03/25/24 00:54 Towns % (Auto) 9.4 % 03/25/24 00:54 Eos % (Auto) 1.2 % 03/25/24 00:54 Baso % (Auto) 0.5 % 03/25/24 00:54 Neut # (Auto) 6.02 10^3/uL (1.8-7.7) 03/25/24 00:54 Lymph # (Auto) 1.1 10^3/uL (0.8-4.8) 03/25/24 00:54 Towns # (Auto) 0.8 10^3/uL (0.2-0.9) 03/25/24 00:54 Eos # (Auto) 0.1 10^3/uL (0.0-0.8) 03/25/24 00:54 Baso # (Auto) 0.0 10^3/uL (0.0-0.1) 03/25/24 00:54 Nucleated RBC % (auto) 0 % 03/25/24 00:54 Nucleated RBCs # 0.0 /100WBC 03/25/24 00:54 Sodium 135 mmol/L (136-145) L 03/25/24 00:54 Potassium 3.8 mmol/L (3.5-5.1) 03/25/24 00:54 Chloride 99 mmol/L (98-107) 03/25/24 00:54 Carbon Dioxide 23 mmol/L (22-29) 03/25/24 00:54 Anion Gap 16.8 (5-19) 03/25/24 00:54 BUN 9 mg/dL (8-23) 03/25/24 00:54 Creatinine 0.7 mg/dL (0.5-0.9) 03/25/24 00:54 GFR Calculation Not Reportable 03/25/24 00:54 Glucose 121 mg/dL (65-115) H 03/25/24 00:54 Calculated Osmolality 280 mOsm/kg (285-295) L 03/25/24 00:54 Calcium 8.8 mg/dL (8.5-10.5) 03/25/24 00:54 Total Bilirubin 0.9 mg/dL (0.15-1.2) 03/25/24 00:54 AST 22 U/L (0-32) 03/25/24 00:54 ALT 16 U/L (0-33) 03/25/24 00:54 Alkaline Phosphatase 69 U/L (35-105) 03/25/24 00:54 Total Protein 6.9 g/dL (6.6-8.7) 03/25/24 00:54 Albumin 3.9 g/dL (3.5-5.2) 03/25/24 00:54 Globulin 3.0 g/dL (1.3-4.6) 03/25/24 00:54 Lipase 17 U/L (13-60) 03/25/24 00:54 Urine Color Dark yellow (Yellow) A 03/25/24 02:27 Urine Appearance Clear (CLEAR) 03/25/24 02:27 Urine pH 6.5 (5-7) 03/25/24 02:27 Ur Specific [place] 1.013 (1.005-1.030) 03/25/24 02:27 Urine Protein Negative (Negative) 03/25/24 02:27 Urine Glucose (UA) Negative (Normal) 03/25/24 02:27 Urine Ketones 1+ (Negative) H 03/25/24 02:27 Urine Blood Negative (Negative) 03/25/24 02:27 Urine Nitrate Negative (Negative) 03/25/24 02:27 Urine Bilirubin Negative (Negative) 03/25/24 02:27 Urine Urobilinogen 1.0 mg/dL (Negative) 03/25/24 02:27 Ur Leukocyte Esterase Trace (Negative) A 03/25/24 02:27 Urine RBC 0-2 /hpf (0-2) 03/25/24 02:27 Urine WBC 0-5 /hpf (0-5) 03/25/24 02:27 Ur Squamous Epith Cells 0-5 /hpf (0-5) 03/25/24 02:27 Amorphous Sediment Not Reportable 03/25/24 02:27 Urine Bacteria None seen /hpf (NONE) 03/25/24 02:27 Hyaline Casts 0.40 /lpf 03/25/24 02:27 All radiology interpretation(s) finalized by discharge Discharge Plan Discharge Patient Disposition: Home Clinical Impression: Constipation Qualifiers: Constipation type: unspecified constipation type Qualified Code(s): K59.00 - Constipation, unspecified Condition: Stable Prescriptions: No Action azelastine 137 mcg (0.1 %) aerosol,spray 2 spray intranasal BID Rx Instructions: administer into each nostril fluticasone propionate 50 mcg/actuation spray,suspension 1 spray intranasal DAILY PRN (Reason: allergies) Rx Instructions: administer into each nostril latanoprost 0.005 % drops 1 drp ophthalmic (eye) DAILY Rx Instructions: to both eyes betamethasone, augmented 0.05 % ointment 1 applic topical BID PRN (Reason: skin irritation) Qty: 50 0RF Rx Instructions: apply a thin film omeprazole 20 mg tablet,delayed release (DR/EC) 20 mg PO DAILY dorzolamide-timolol 22.3-6.8 mg/mL drops 1 drp ophthalmic (eye) BID Rx Instructions: to both eyes budesonide-formoterol [Symbicort] 160-4.5 mcg/actuation HFA aerosol inhaler 1 inh inhalation DAILY trazodone 150 mg Tablet 150 mg PO BEDTIME levothyroxine 125 mcg Tablet 125 mcg PO DAILY clobetasol 0.05 % Cream 1 applic TOPICAL DAILY PRN (Reason: Skin Irritation) hydrocodone-acetaminophen 5-325 mg tablet 1 tab PO Q6H PRN (Reason: pain) Qty: 20 0RF ondansetron 4 mg tablet,disintegrating 4 mg PO Q8H PRN (Reason: nausea and vomiting) Qty: 20 0RF Discharge Orders: Discharge ED (Routine); Ordered 03/25/24 Ordered By: Jaren Gama Referrals: Denisse Garrison PA [Primary Care Provider] - 1 week Patient Instructions: Constipation - Adult Activity Restrictions/Additional Instructions: Please drink the entire bottle of mag citrate for send when you get home as this will help with your constipation. Otherwise continue your [id number] bowel regimen and limit your narcotic usage. Thank you for choosing [facility] for your healthcare needs today. Please realize that you were seen in the emergency department and that we are providing you with an emergency medical screening exam and this may not be a complete and all exclusive of all testing and/or medical workup we may need to determine your element or severity of your illness. It is very important that you follow-up as instructed with your primary care provider or specialist for the additional evaluation and to discuss your medical treatment plan. You may return to the emergency department should you have concerns or if your condition changes or worsens in any way. Coding Level of Care Code ED Forestry Supervisor for Lona Valdovinos
[2024-03-25 02:31] LABS: Charge for UA Resulting for Rev
[2024-03-25 02:34] LABS: Bilirubin Urine Negative (Negative); Blood Urine Negative (Negative); Glucose Urine UA Negative (Normal); Ketones Urine 1+ (Negative); Leukocyte Esterase Urine Trace (Negative); Nitrate Urine Negative (Negative); Protein Urine Negative (Negative); Specific Gravity, Urine 1.013 (1.005-1.030); Urine Appearance Clear (CLEAR); Urine Color Dark Yellow (Yellow); pH Urine 6.5 (5-7)
[2024-03-25 02:38] LABS: Bacteria Urine None Seen /hpf; RBC Urine 0-2 /hpf (0-2); Squamous Epithelial Cell Urine 0-5 /hpf (0-5); WBC Urine 0-5 /hpf (0-5)
[2024-03-25] MEDS: bisacodyl 5 mg Tablet 10 MG PO (02:40)
[2024-03-25 02:42] VITALS: BP 155/89; PULSE 79; O2SAT 96
--- NOTE | 2024-03-25 02:45 | PC.NURSE ---
Pt refused to drink Magnesium Citrate during visit. Pt was sent home with medication per Dr Gama's order.
[2024-03-25 02:48] VITALS: BP 155/97; PULSE 76; O2SAT 97
== END 2024-03-25 02:58 | disposition home or self-care (01) ==
PROVIDERS: Emergency Provider Emergency Medicine; PCP Physician Assistant
DX: K59.00 Constipation, unspecified (principal)
CPT/HCPCS: 74018; 80053; 81003; 81015; 83690; 85025; 93005; 96361; 96374; 96375; 99285; J1885; J2765; J7030

== ENCOUNTER → 2024-04-06 10:15 | Outpatient (BNVA) | payer MEDICARE, SELFPAY | PROVIDERS: PCP Physician Assistant; Visit Provider Nurse Practitioner | DX: Z98.890 Other specified postprocedural states (principal); M23.203 Derangement of unspecified medial meniscus due to old tear or injury, right knee; M17.11 Unilateral primary osteoarthritis, right knee | CPT/HCPCS: 99024 ==

== ENCOUNTER → 2024-05-11 10:12 | Outpatient (BNVA) | payer MEDICARE, SELFPAY | PROVIDERS: PCP Physician Assistant; Visit Provider Nurse Practitioner | DX: Z98.890 Other specified postprocedural states (principal); M23.203 Derangement of unspecified medial meniscus due to old tear or injury, right knee; M17.11 Unilateral primary osteoarthritis, right knee | CPT/HCPCS: 99024 ==

== ENCOUNTER 2024-06-05 16:04 | Emergency (ER) | payer MEDICARE, SELFPAY ==
--- NOTE | 2024-06-05 16:08 | ECG_ITS ---
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
[2024-06-05 16:15] VITALS: BP 161/91; PULSE 87; TEMP 36.8; O2SAT 98; BMI 26.2
--- NOTE | 2024-06-05 16:23 | XRR_ITS ---
PROCEDURE INFORMATION: Exam: XR Chest Exam date and time: 06/05/2024 4:51 PM Age: 73 years old Clinical indication: Chest pressure; Patient HX: Chest pain; Irregular heartbeat TECHNIQUE: Imaging protocol: Radiologic exam of the chest. Views: 1 view. COMPARISON: CT chest wo con [id number] 10/08/2023 4:11 PM FINDINGS: Lungs: The lungs are clear. No pulmonary consolidation. Pleural spaces: No pleural effusion or pneumothorax. Heart/Mediastinum: The cardiomediastinal silhouette is within normal limits. Bones/joints: No acute osseous abnormalities are seen. XR/XR chest 1V portable [id number] IMPRESSION: No acute cardiopulmonary disease.
--- NOTE | 2024-06-05 16:30 | W.ED.CHESTPA ---
HPI - Chest Pain General: Chief Complaint: Chest Pain Stated Complaint: CP, Irregular heartbeat, SOB Time Seen by Provider: 06/05/24 16:22 Source: patient Mode of arrival: ambulatory Limitations: no limitations History of Present Illness: 71-year-old female states she has had a sharp pain in her left chest been worse with palpation. She states her symptoms have been going on for 2 to 3 days. She states she feels like her heart drops beats at times as well she denies feeling palpitations she denies any shortness of breath currently. She states she has watched her heartbeat on a pulse ox and thinks she is seeing missed beats as well. No history of heart disease. Associated symptoms: Deny abdominal pain, dyspnea, fever(s), nausea or vomiting Related Data Home Medications Medication Instructions Recorded Confirmed levothyroxine 125 mcg tablet 125 mcg PO DAILY 03/10/22 05/11/24 trazodone 150 mg tablet 150 mg PO BEDTIME 03/10/22 05/11/24 azelastine 137 mcg (0.1 %) nasal 2 spray intranasal BID 08/06/23 05/11/24 spray fluticasone propionate 50 1 spray intranasal DAILY PRN 08/06/23 05/11/24 mcg/actuation nasal allergies spray,suspension latanoprost 0.005 % eye drops 1 drp ophthalmic (eye) DAILY 08/06/23 05/11/24 budesonide-formoterol HFA 160 1 inh inhalation DAILY 09/28/23 05/11/24 mcg-4.5 mcg/actuation aerosol inhaler (Symbicort) dorzolamide 22.3 mg-timolol 6.8 1 drp ophthalmic (eye) BID 09/28/23 05/11/24 mg/mL eye drops omeprazole 20 mg tablet,delayed 20 mg PO DAILY 09/28/23 05/11/24 release clobetasol 0.05 % topical cream 1 applic topical DAILY PRN Skin 03/21/24 05/11/24 Irritation Previous Rx's Medication Instructions Recorded betamethasone, augmented 0.05 % 1 applic topical BID PRN skin 06/23/23 topical ointment irritation #50 grams hydrocodone 5 mg-acetaminophen 325 1 tab PO Q6H PRN pain #20 tabs 03/22/24 mg tablet ondansetron 4 mg disintegrating 4 mg PO Q8H PRN nausea and 03/22/24 tablet vomiting #20 tabs Allergies Allergy/AdvReac Type Severity Reaction Status Date / Time ciprofloxacin Allergy ALGY-Anaphy Verified 06/05/24 16:19 laxis Review of Systems Const: Denies: fever(s), chills, body aches or change in appetite ENMT: Denies: throat pain or dental pain Card: Reports: chest pain Resp: Denies: dyspnea GI: Denies: abdominal pain, nausea, vomiting or diarrhea Musc: Denies: neck pain or back pain Skin/Breast: Denies: rash Neuro: Denies: headache(s) PFSH ED PFSH: Medical History History of ectopic No pertinent past medical history neghx: htn,dm,dvt/pe PCP: Intestinal metaplasia of stomach Hypothyroidism Surgical History Status post arthroscopic surgery of right knee Date of procedure: March 22, 2024 Pre-op diagnosis: Right lateral meniscal tear with osteoarthritis Post-op findings: Severe degenerative osteoarthritic changes with maceration and tearing of both the medial and lateral menisci. Procedure done: Right arthroscopic knee surgery with partial medial and lateral meniscectomies, chondroplasties of the medial femoral condyle, lateral tibial plateau, and patella. Surgeon: Dr. Latanya Lozano MD History of Clayton fundoplication Hx of cholecystectomy Hx of appendectomy H/O: hysterectomy RICKEY, unilateral oophorectomy performed in [place] for AUB; benign findings. 1 ovary spared. Family History Mother Lung cancer Hypertension Grandmother Stroke maternal Heart disease Brother Hypertension Sister Hypertension Thyroid disease Father Prostate cancer Grandfather Prostate cancer Paternal Denies family history of Colon cancer Ovarian cancer Diabetes Hyperlipidemia Breast cancer Uterine cancer Social History Smoking and tobacco/nicotine status: never used tobacco/nicotine Quit status (tobacco/nicotine): has quit using Year quit tobacco: 1974 Former quit date comment: 1 ppd X 4 years Physical Exam Const: COMMON NORMALS: no acute distress, patient oriented x3 and healthy appearing HENMT: COMMON NORMALS: normocephalic and atraumatic HEAD & SCALP: normocephalic and atraumatic Eye: COMMON NORMALS: conjunctivae normal CONJUNCTIVA: Yes conjunctivae normal Neck/C-Spine: COMMON NORMALS: full ROM and supple Chest: COMMONS NORMALS: normal inspection of the chest OTHER: Point tender over left chest reproduces pain Resp: COMMON NORMALS: normal respiratory effort, No retractions, No use of accessory muscles and clear to auscultation bilaterally AUSCULTATION: clear to auscultation bilaterally Cardio: COMMON NORMALS: regular rate, regular rhythm and No murmurs present (Cardio) RATE: regular rate RHYTHM: regular rhythm Extremity: COMMON NORMALS: normal to inspection and full ROM Neuro: COMMON NORMALS: patient oriented x3, moves all extremities and no focal motor deficits Psych: COMMON NORMALS: mental status grossly normal, Normal thought process present and cooperative THOUGHT PROCESS: Normal thought process present Skin: COMMON NORMALS: no rashes or lesions noted and no wounds GENERAL SKIN EXAM: no rashes or lesions noted Course Vital Signs: Vital signs: Vital Signs Temperature 98.3 F 06/05/24 16:15 Pulse Rate 68 06/05/24 16:55 Respiratory Rate 14 06/05/24 16:55 Blood Pressure 155/90 06/05/24 16:55 Pulse Oximetry 95 06/05/24 16:55 Oxygen Delivery Me thod Room Air 06/05/24 16:15 MDM - Chest Pain Medical Decision Making Patient presents for chest pains atypical in nature she is point tender here on exam to her left chest reproduces her pain her troponin here is negative EKG was normal she had no arrhythmias on her monitor EKG here. She states she feels like her heart is skipping a beat at times inform her she is follow-up with PCP if it continues she likely needs a heart monitor she is return if worsening she understands agrees to plan. Medical Records I reviewed the patient's medical records. Lab Data I reviewed the patient's lab results. 06/05/24 16:32 06/05/24 16:32 Laboratory Results WBC 7.12 10^3/uL (3.29-11.43) 06/05/24 16:32 RBC 4.25 10^6/uL (3.85-5.65) 06/05/24 16:32 Hgb 14.10 g/dL (11.27-16.99) 06/05/24 16: Hct 43.2 % (36-47) 06/05/24 16: MCV 101.6 fl (85-98) H 06/05/24 16:32 MCH 33.2 pg (27-33) H 06/05/24 16: MCHC 32.6 g/dL (30-55) 06/05/24 16:32 RDW 12.2 % (12.1-15.1) 06/05/24 16:32 Plt Count 220 10^3/cmm (157-399) 06/05/24 16: MPV 10.3 fL (7.4-10.4) 06/05/24 16:32 Neut % (Auto) 61.2 % 06/05/24 16: Lymph % (Auto) 27.4 % 06/05/24 16:32 Nicholas % (Auto) 7.0 % 06/05/24 16: Eos % (Auto) 3.5 % 06/05/24 16:32 Baso % (Auto) 0.6 % 06/05/24 16:32 Neut # (Auto) 4.36 10^3/uL (1.8-7.7) 06/05/24 16:32 Lymph # (Auto) 2.0 10^3/uL (0.8-4.8) 06/05/24 16:32 Nicholas # (Auto) 0.5 10^3/uL (0.2-0.9) 06/05/24 16: Eos # (Auto) 0.3 10^3/uL (0.0-0.8) 06/05/24 16:32 Baso # (Auto) 0.0 10^3/uL (0.0-0.1) 06/05/24 16: Nucleated RBC % (auto) 0 % 06/05/24 16: Nucleated RBCs # 0.0 /100WBC 06/05/24 16:32 Sodium 137 mmol/L (136-145) 06/05/24 16:32 Potassium 4.2 mmol/L (3.5-5.1) 06/05/24 16:32 Chloride 101 mmol/L (98-107) 06/05/24 16:32 Carbon Dioxide 26 mmol/L (22-29) 06/05/24 16:32 Anion Gap 14.2 (5-19) 06/05/24 16:32 BUN 22 mg/dL (8-23) 06/05/24 16:32 Creatinine 0.6 mg/dL (0.5-0.9) 06/05/24 16:32 GFR Calculation Not Reportable 06/05/24 16:32 Glucose 110 mg/dL (65-115) 06/05/24 16:32 Calculated Osmolality 288 mOsm/kg (285-295) 06/05/24 16:32 Calcium 9.1 mg/dL (8.5-10.5) 06/05/24 16:32 Total Bilirubin 0.6 mg/dL (0.15-1.2) 06/05/24 16:32 AST 23 U/L (0-32) 06/05/24 16:32 ALT 14 U/L (0-33) 06/05/24 16:32 Alkaline Phosphatase 104 U/L (35-105) 06/05/24 16:32 Troponin T Baseline < 6 ng/L (0-10) 06/05/24 16:32 NT-Pro-B Natriuret Pep 100 pg/mL (0-125) 06/05/24 16:32 Total Protein 7.3 g/dL (6.6-8.7) 06/05/24 16:32 Albumin 4.5 g/dL (3.5-5.2) 06/05/24 16:32 Globulin 2.8 g/dL (1.3-4.6) 06/05/24 16:32 TSH 2.85 uIU/mL (0.27-4.20) 06/05/24 16:32 All radiology interpretation(s) finalized by discharge EKG Data EKG 1: I personally reviewed and interpreted this EKG as follows: EKG interpretation date: 06/05/24 EKG interpretation time: 16:07 Interpretation: nsr hr [address] or t wave abnormalities qrs 72 qtc 392 Discharge Plan Discharge Patient Disposition: Home Clinical Impression: Chest pain Condition: Stable Prescriptions: No Action azelastine 137 mcg (0.1 %) aerosol,spray 2 spray intranasal BID Rx Instructions: administer into each nostril fluticasone propionate 50 mcg/actuation spray,suspension 1 spray intranasal DAILY PRN (Reason: allergies) Rx Instructions: administer into each nostril latanoprost 0.005 % drops 1 drp ophthalmic (eye) DAILY Rx Instructions: to both eyes betamethasone, augmented 0.05 % ointment 1 applic topical BID PRN (Reason: skin irritation) Qty: 50 0RF Rx Instructions: apply a thin film omeprazole 20 mg tablet,delayed release (DR/EC) 20 mg PO DAILY dorzolamide-timolol 22.3-6.8 mg/mL drops 1 drp ophthalmic (eye) BID Rx Instructions: to both eyes budesonide-formoterol [Symbicort] 160-4.5 mcg/actuation HFA aerosol inhaler 1 inh inhalation DAILY trazodone 150 mg Tablet 150 mg PO BEDTIME levothyroxine 125 mcg Tablet 125 mcg PO DAILY clobetasol 0.05 % Cream 1 applic TOPICAL DAILY PRN (Reason: Skin Irritation) hydrocodone-acetaminophen 5-325 mg tablet 1 tab PO Q6H PRN (Reason: pain) Qty: 20 0RF ondansetron 4 mg tablet,disintegrating 4 mg PO Q8H PRN (Reason: nausea and vomiting) Qty: 20 0RF Discharge Orders: Discharge ED (Routine); Ordered 06/05/24 Ordered By: Dario Everett Referrals: Denisse Garrison PA [Primary Care Provider] - 4-7 days Discharge Diet: Advance as tolerated Discharge Activity: Resume usual activity Patient Instructions: Chest Pain (ED) Coding Level of Care Code ED Daycare Teacher for Loan Valdovinos
[2024-06-05 16:41] LABS: Basophils % 0.6 %; Eosinophils # 0.3 10^3/uL (0.0-0.8); Eosinophils % 3.5 %; Hematocrit 43.2 % (36-47); Lymphocytes % 27.4 %; Mean Corpuscular HGB Conc 32.6 g/dL (30-55); Mean Corpuscular Hemoglobin 33.2 pg (27-33); Mean Corpuscular Volume 101.6 fl (85-98); Mean Platelet Volume 10.3 fL (7.4-10.4); Monocytes # 0.5 10^3/uL (0.2-0.9); Neutrophils # 4.36 10^3/uL (1.8-7.7); Neutrophils % 61.2 %; Nucleated Red Blood Cells % 0 %; Platelet Count 220 10^3/cmm (157-399); Red Blood Count 4.25 10^6/uL (3.85-5.65); Red Cell Distribution Width 12.2 % (12.1-15.1); White Blood Count 7.12 10^3/uL (3.29-11.43)
[2024-06-05 16:50] VITALS: BP 160/89; PULSE 68; RESP 15; O2SAT 95
[2024-06-05 16:55] VITALS: BP 155/90; PULSE 68; RESP 14; O2SAT 95
[2024-06-05 17:00] LABS: Troponin(5th) Baseline < 6 ng/L (0-10)
[2024-06-05 17:09] LABS: Alanine Aminotransferase 14 U/L (0-33); Albumin Level 4.5 g/dL (3.5-5.2); Alkaline Phosphatase 104 U/L (35-105); Anion Gap 14.2 (5-19); Aspartate Amino Transferase 23 U/L (0-32); Blood Urea Nitrogen 22 mg/dL (8-23); Calcium 9.1 mg/dL (8.5-10.5); Carbon Dioxide 26 mmol/L (22-29); Chloride 101 mmol/L (98-107); Creatinine Clr Calc Pharmacy 65.2895; Globulin 2.8 g/dL (1.3-4.6); Glucose 110 mg/dL (65-115); NT Pro B Type Natriuretic Pept 100 pg/mL (0-125); Osmolality Calculated 288 mOsm/kg (285-295); Potassium 4.2 mmol/L (3.5-5.1); Sodium 137 mmol/L (136-145); Thyroid Stimulating Hormone 2.85 uIU/mL (0.27-4.20); Total Bilirubin 0.6 mg/dL (0.15-1.2); Total Protein 7.3 g/dL (6.6-8.7)
[2024-06-05 17:38] VITALS: BP 142/87; PULSE 74; O2SAT 99
== END 2024-06-05 17:39 | disposition home or self-care (01) ==
PROVIDERS: Emergency Provider Emergency Medicine; PCP Physician Assistant
DX: R07.9 Chest pain, unspecified (principal); Z87.891 Personal history of nicotine dependence
CPT/HCPCS: 36415; 71045; 80053; 83880; 84443; 84484; 85025; 93005; 99285

== ENCOUNTER 2024-07-18 11:56 | Outpatient (CLI) | payer MEDICARE, SELFPAY ==
--- NOTE | 2024-07-18 11:59 | USCV_ITS ---
Mena Cage Age: 73 Gender: F : 1950 Exam Date: 07/18/2024 12:04 Ordering Phys: Denisse Garrison Technologist: [place] [facility] [place] [facility] [place]: BP: 114 / 77 HR: 67 Rhythm: Sinus Technical Quality: Adequate MEASUREMENTS (Male / Female) Normal Values 2D ECHO LVOT Diameter 2.0 cm LV Ejection Fraction MOD 4C 59.8 % LV Ejection Fraction MOD 2C 55.6 % LV Ejection Fraction 2C AL 55.4 % LA Diameter 3.4 cm RA Systolic Volume 4C AL 29.8 ml RA Systolic Volume 4C MOD 28.7 ml LA Sys Volume AL 27.2 cm cubed LA Sys Volume Index AL 14.4 cm cubed/m squared Aorta at Sinotubular Diameter 2.6 cm M-MODE LA Ao Ratio MM 1.1 AV Cusp Separation MM 1.9 cm DOPPLER AV Peak Velocity 114.0 cm/s LVOT Peak Velocity 89.0 cm/s AV Area Cont Eq vti 3.0 cm squared AV Area Cont Eq pk 2.5 cm squared MV Peak Velocity 104.0 cm/s MV Area PHT 3.4 cm squared Mitral E to A Ratio 1.1 TR Peak Velocity 162.0 cm/s TR Peak Gradient 10.5 mmHg TV Peak E Velocity 56.0 cm/s PV Peak Velocity 83.5 cm/s FINDINGS Left Ventricle Left ventricular normal size. LV systolic function is normal with EF of 55 to 60%. No regional wall motion abnormalities are seen. . Right Ventricle Normal in size and function Right Atrium Normal in size Left Atrium Normal in size Mitral Valve Structurally normal mitral valve. Mild mitral regurgitation. Aortic Valve Aortic valve is thickened. No significant stenosis or regurgitation. Tricuspid Valve Mild tricuspid regurgitation. Insufficient TR jet to calculate RVSP Pulmonic Valve Not well visualized Pericardium Normal Aorta Normal in size IVC Appears to be normal CONCLUSIONS LV systolic function is normal with EF of 55-60% Mild mitral regurgitation Mild tricuspid regurgitation No comparison studies are available Winston Borja MD (Electronically Signed) Final Date: 22 July 2024 10:07 S
== END 2024-07-18 11:57 | disposition home or self-care (01) ==
LOC: RAD 11:58
PROVIDERS: PCP Physician Assistant; Visit Provider Physician Assistant
DX: I35.0 Nonrheumatic aortic (valve) stenosis (principal); R00.2 Palpitations
CPT/HCPCS: 93306

== ENCOUNTER → 2025-07-21 10:41 | Outpatient (BNVA) | payer MEDICARE, SELFPAY | PROVIDERS: PCP Physician Assistant; Visit Provider Dermatology | DX: L82.1 Other seborrheic keratosis (principal); D22.5 Melanocytic nevi of trunk; L85.3 Xerosis cutis; L30.4 Erythema intertrigo; D23.71 Other benign neoplasm of skin of right lower limb, including hip; L21.8 Other seborrheic dermatitis; L82.0 Inflamed seborrheic keratosis; R20.8 Other disturbances of skin sensation; L29.89 Other pruritus; L30.9 Dermatitis, unspecified; L57.0 Actinic keratosis | CPT/HCPCS: 11102; 17000; 17110; 99214 ==

== ENCOUNTER 2025-07-24 10:51 | Outpatient (CLI) | payer MEDICARE, SELFPAY | END 2025-07-24 10:52 | disposition home or self-care (01) | LOC: RAD 07-27 06:27 | PROVIDERS: PCP Physician Assistant; Visit Provider Specialist | DX: M17.11 Unilateral primary osteoarthritis, right knee (principal); M23.203 Derangement of unspecified medial meniscus due to old tear or injury, right knee | CPT/HCPCS: 99215 ==

== ENCOUNTER → 2025-07-24 10:58 | Outpatient (BNVA) | payer MEDICARE, SELFPAY | PROVIDERS: PCP Physician Assistant; Visit Provider Specialist | DX: M17.11 Unilateral primary osteoarthritis, right knee (principal); M23.203 Derangement of unspecified medial meniscus due to old tear or injury, right knee | CPT/HCPCS: 73560; 73565 ==

== ENCOUNTER 2025-08-04 09:48 | Outpatient (CLI) | payer MEDICARE, SELFPAY ==
--- NOTE | 2025-08-04 10:00 | CT_ITS ---
WS: [id number] CT RIGHT KNEE, NONCONTRAST [facility] TECHNIQUE: Noncontrast CT of the RIGHT knee to include the RIGHT hip and ankle. CLINICAL INFORMATION: per [facility] protocol DLP: 898.[address] scans at [facility] use at least one of these dose optimization techniques: automated exposure control; mA and/or kV adjustment per patient size (includes targeted exams where dose is matched to clinical indication); or iterative reconstruction. FINDINGS: Moderate to advanced tricompartmental arthritis RIGHT knee. Hypertrophic patella. Tiny suprapatellar effusion. Small popliteal cyst. Sigmoid diverticulosis. CT/CT knee RT [facility] [id number] IMPRESSION: Images obtained for preoperative purposes.
== END 2025-08-04 09:49 | disposition home or self-care (01) ==
LOC: RAD 09:49
PROVIDERS: PCP Physician Assistant; Visit Provider Specialist
DX: M17.11 Unilateral primary osteoarthritis, right knee (principal); M25.761 Osteophyte, right knee; K57.30 Diverticulosis of large intestine without perforation or abscess without bleeding
CPT/HCPCS: 73700